=== PATIENT | male | born 1950 | race Caucasian/White ===

== ENCOUNTER 2016-07-23 15:47 | Emergency (ER) | payer OTHER ==
[~2016-07-23] VITALS: Ht 160 cm; Wt 56.7 kg
[~2016-07-23 15:47] MED LIST: ABAC1TAB3 PO; ATAZ100C PO; CITA10TA17 PO; RITO100C2 PO; TRAZ-147 PO
[2016-07-23 23:21] VITALS: BP 148/87
== END 2016-07-23 22:55 | disposition home or self-care (01) ==
LOC: ER 15:49
DX: K94.13 Enterostomy malfunction (principal); E86.0 Dehydration; I10 Essential (primary) hypertension; K21.9 Gastro-esophageal reflux disease without esophagitis; F32.9 Major depressive disorder, single episode, unspecified; Z90.49 Acquired absence of other specified parts of digestive tract; Z88.0 Allergy status to penicillin
CPT/HCPCS: 99284; A4606; Z7610

== ENCOUNTER 2017-03-21 12:43 | Inpatient (IN) | payer OTHER ==
[~2017-03-21] VITALS: Ht 175.3 cm; Wt 63.5 kg
--- NOTE | 2017-03-21 12:56 | NUR ---
PT TO ER BED 16. C/O LLE PAIN, CELLULITIS NOTED. ALSO C/O DIFFUSE ABDOMINAL PAIN, FEVER X 1 WEEK. PT GOWNED AND PLACED ON MONITOR. STABLE VITALS. AFEBRILE WEIGHT LOSS SALES CONSULTANT. AWAITING MD CADET.
--- NOTE | 2017-03-21 13:18 | NUR ---
SRIDHAR COATER OPERATOR INSULATION BOARD AT BEDSIDE FOR EVAL.
--- NOTE | 2017-03-21 13:20 | NUR ---
IV LINE STARTED BLOOD DRAWN AND SENT TO LAB.
[2017-03-21 13:26] LABS: BASOPHILS % (AUTO) 0.1 % (0.0-2.0); EOSINOPHILS # (AUTO) 0.1 /CMM (0.0-0.7); EOSINOPHILS % (AUTO) 0.5 % (0.0-6.0); HEMATOCRIT 30 % (39-51); HEMOGLOBIN 10.2 g/dL (13.5-17.5); LYMPHOCYTES # (AUTO) 1.6 /CMM (0.8-4.8); LYMPHOCYTES % (AUTO) 14.9 % (20.0-44.0); MEAN CORPUSCULAR HEMOGLOBIN 29 PG (26.0-33.0); MEAN CORPUSCULAR HGB CONC 34 g/dl (31.0-36.0); MEAN CORPUSCULAR VOLUME 87 fL (80-96); MONOCYTES # (AUTO) 0.7 /CMM (0.1-1.30); MONOCYTES % (AUTO) 6.2 % (2.0-12.0); NEUTROPHILS # (AUTO) 8.4 /CMM (1.8-8.9); NEUTROPHILS % (AUTO) 78.3 % (43.0-81.0); PLATELET COUNT (AUTO) 353 /CMM (150-450); RED BLOOD CELL COUNT(AUTO) 3.48 MIL/uL (4.5-6.0); WHITE BLOOD COUNT (AUTO) 10.8 K/uL (4.3-11.0)
[2017-03-21] MEDS ORDERED: IV NS 0.9% 1,000 ML BAG IV ONE (13:30)
[2017-03-21 13:40] LABS: PROTHROMBIN TIME 10.4 SECS (9.5-12.7)
--- NOTE | 2017-03-21 13:42 | NUR ---
RADIOLOGY AT BEDSIDE FOR CHEST AND L TIB/FIB XRAY.
[2017-03-21 13:44] LABS: TROPONIN I < 0.017 ng/mL (0.00-0.056)
[2017-03-21 13:51] LABS: CALCIUM, SERUM 8.4 mg/dL (8.5-10.1); CARBON DIOXIDE 23 mmol/L (21-32); CHLORIDE 106 mmol/L (98-107); CREATININE 2.1 mg/dL (0.6-1.3); GLUCOSE 106 mg/dL (74-106); POTASSIUM 3.8 mmol/L (3.5-5.1); SODIUM SERUM 139 mmol/L (136-145); UREA NITROGEN, BLOOD 18 mg/dL (7-18)
[2017-03-21 13:56] LABS: ALANINE AMINOTRANSFERASE 17 U/L (12-78); ALBUMIN 3.3 g/dL (3.4-5.0); ALKALINE PHOSPHATASE 100 U/L (46-116); ASPARTATE AMINOTRANSFERASE 19 U/L (15-37); BILIRUBIN,DIRECT 0.1 mg/dL (0.0-0.2); BILIRUBIN,TOTAL 0.4 mg/dL (0.2-1.0); TOTAL PROTEIN, SERUM 7.9 g/dL (6.4-8.2)
--- NOTE | 2017-03-21 14:36 | NUR ---
PT IS HYPERTENSIVE, SRIDHAR TEMPORARY DATA ENTRY CLERK MADE AWARE.
--- NOTE | 2017-03-21 14:49 | NUR ---
PATIENT WILL BE ADMITTED INTO ROOM 329 MS.
--- NOTE | 2017-03-21 14:54 | NUR ---
REPORT GIVEN TO MALINDA. PT AWAITING TRANSFER TO FLOOR.
--- NOTE | 2017-03-21 15:35 | NUR ---
CALLED DR DEL ANGEL, LEFT VOICEMAIL.
--- NOTE | 2017-03-21 15:52 | NUR ---
CALLED DR DEL ANGEL, ON THE PHONE WITH MELVINA GARDINER
[2017-03-21] MEDS ORDERED: LEVOFLOXACIN 750 MG /D5W 150ML PIGGYBACK IV ONE (16:00)
[2017-03-21] MEDS ORDERED: VANCOMYCIN 1 GM in IV D5W 250 ML IV ONE ×2 (16:00→19:00)
[2017-03-21] MEDS ORDERED: LEVOFLOXACIN 750 MG /D5W 150ML 150 ML IV ONE (16:21)
[2017-03-21 17:00] VITALS: BP 165/98
--- NOTE | 2017-03-21 17:00 | NUR ---
RN NOTES SKIN ASSESSED AND PICTURES WERE TAKEN ON PT.'S WOUNDS.
--- NOTE | 2017-03-21 17:00 | NUR ---
RN NOTES ADMISSION RECEIVED PT. A&OX4. PT. BREATHING ON ROOM AIR UNLABORED. NO S/S OF ACUTE DISTRESS. IV ANTIBIOTICS RUNNING IV ON RIGHT FOREARM. PT. WAS BROUGHT IN ON AN ER BED, AND RECEIVED IV ANTIBIOTICS FROM ER. BED IS IN LOW POSITION, 2 SIDE RAILS UP, AND INSTRUCTED PT. TO USE CALL LIGHT WITHIN REACH. 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
[2017-03-21] MEDS ORDERED: ONDANSETRON HCL/PF 4 MG/2 ML VIAL IV PRN (18:30)
[2017-03-21] MEDS ORDERED: LEVOFLOXACIN 500 MG /D5W 100ML 500 MG in PREMIX 1 EA IV ONE (19:00)
[2017-03-21] MEDS ORDERED: FEE PK DOSING 1 MIN EA MC ONE ×2 (19:04→19:11)
[2017-03-21] MEDS: HYDROMORPHONE 1 MG/1 ML DISP.SYRIN IV PRN (19:22)
--- NOTE | 2017-03-21 19:40 | NUR ---
MS/PATTERN GRADER CUTTER; RECEIVED PT 'S REPORTS FROM THE DAY SHIFT RN FOR CONTINUITY OF CARE. PT AT THIS TIME ON THE PHONE. BREATHING NON LABORED. IV SITE ON RFA INTACT. HAS ILEOSTOMY . BED ON LOWER POSITION AND LOCKED FOR SAFETY. SIDE RAILS ARE UP FOR SAFETY. NOTED URINAL WITH OUTPUT OF YELLOW URINE 300 ML . PT REMINDED TO CALL FOR HELP AND CALL LIGHT AND URINAL WITHIN REACH.
--- NOTE | 2017-03-21 19:45 | NUR ---
RN CLOSING NOTES PT. IS IN BED A&OX4, SLEEPING INTERMITTENTLY. BREATHING ON ROOM AIR UNLABORED. PT. WAS GIVEN DILAUDID IVP FOR PAIN 8/10 IN LEFT & RIGHT LOWER EXTREMITIES. PT. HAS ILEOSTOMY ON ABDOMINAL RIGHT UPPER QUADRANT, NO S/S OF REDNESS AT SITE, AND PT. EMPTIED ILEOSTOMY ONCE INDEPENDENTLY. IV FLUIDS RUNNING AT 100 ML/HR. BED IS IN LOW POSITION, 2 SIDE RAILS UP, CALL LIGHT WITHIN REACH, AND ALL NEEDS MET AT THIS TIME. WILL ENDORSE REPORT TO DRAWING FRAME TENDER NURSE.
[2017-03-21 20:00] VITALS: BP 191/105
--- NOTE | 2017-03-21 20:09 | NUR ---
MSRN HAD 1 GM OF VANCO STARTED IN ER. PATIENT CAME WITH VANCO INFUSING. FOLLOWED BY LEVAQUIN 750 MG IVPB.
--- NOTE | 2017-03-21 20:35 | NUR ---
MS/MERCHANDISING REPRESENTATIVE; TEMP. 100.7 PER AXILLA, AND BP 191 105. NOTED PT IS APPEARED AGITATED TALKING ON THE PHONE. CHARGE NURSE INFORMED OF THE ABOVE. TYLENOL 650 MG PO GIVEN AT 2038.
[2017-03-21] MEDS: ACETAMINOPHEN 325 MG TABLET PO PRN (20:39)
--- NOTE | 2017-03-21 21:00 | NUR ---
MS/BENZENE WASHER; ILEOSTOMY BAG WITH LIQUID BROWN STOOLS. BAG CHANGED.
--- NOTE | 2017-03-21 21:15 | NUR ---
MS/LVB; BED BATH RENDERED BY THE OPERATIONS INSPECTOR. BED LINENS AND GOWN CHANGED. REPOSITIONED.
[2017-03-21 22:00] VITALS: BP 150/86
[2017-03-21] MEDS: TRAZODONE 50 MG TABLET PO SCH (22:01)
[2017-03-22] MEDS ORDERED: PIPERACILLIN /TAZOBACTAM 2.25 G in IV D5W 50 ML IV SCH ×2
[2017-03-22 06:45] LABS: EOSINOPHILS # (AUTO) 0.1 /CMM (0.0-0.7); EOSINOPHILS % (AUTO) 1.6 % (0.0-6.0); HEMATOCRIT 33 % (39-51); HEMOGLOBIN 11.1 g/dL (13.5-17.5); LYMPHOCYTES # (AUTO) 0.6 /CMM (0.8-4.8); LYMPHOCYTES % (AUTO) 6.8 % (20.0-44.0); MEAN CORPUSCULAR HEMOGLOBIN 30 PG (26.0-33.0); MEAN CORPUSCULAR HGB CONC 34 g/dl (31.0-36.0); MEAN CORPUSCULAR VOLUME 89 fL (80-96); MONOCYTES # (AUTO) 0.4 /CMM (0.1-1.30); MONOCYTES % (AUTO) 5.1 % (2.0-12.0); NEUTROPHILS # (AUTO) 7.1 /CMM (1.8-8.9); NEUTROPHILS % (AUTO) 86.5 % (43.0-81.0); PLATELET COUNT (AUTO) 307 /CMM (150-450); RED BLOOD CELL COUNT(AUTO) 3.72 MIL/uL (4.5-6.0); WHITE BLOOD COUNT (AUTO) 8.2 K/uL (4.3-11.0)
--- NOTE | 2017-03-22 07:00 | NUR ---
MS/CERTIFIED FORKLIFT OPERATOR; SLEPT AT GOOD INTERVALS. IVF ON PROGRESS. ILEOSTOMY BAG INTACT. DENIES PAIN. WILL ENDORSE TO THE DAY SHIFT NURSE.
[2017-03-22 07:18] LABS: CALCIUM, SERUM 8.1 mg/dL (8.5-10.1); CREATININE 1.7 mg/dL (0.6-1.3); POTASSIUM 4.1 mmol/L (3.5-5.1)
[2017-03-22 08:00] VITALS: BP 134/72
--- NOTE | 2017-03-22 08:01 | NUR ---
MS RN OPENING NOTE PATIENT IS ALERT AND ORIENTED x3. NO PAIN AT THIS TIME. NO SOB OR DISTRESS NOTED. CALL LIGHT WITHIN REACH. SAFETY MEASURES IMPLEMENTED. IV INTACT AND PATENT NO REDNESS OR SWELLING NOTED. ABLE TO COMMUNICATE NEEDS. USES URINAL AT BEDSIDE. ON CONTACT ISOLATION FOR MRSA OF NARES. PATIENT HAS 100.4 FEVER THIS MORNING, MD AWARE. MEDICATION GIVEN. IV FLUIDS RUNNING AT THIS TIME. WILL CONTINUE TO MONITOR SHIFT THROUGHOUT SHIFT
[2017-03-22] MEDS ORDERED: ATAZANAVIR SULFATE PO SCH (09:00)
[2017-03-22] MEDS: ATAZANAVIR SULFATE 300 MG CAPSULE PO SCH (09:08)
[2017-03-22] MEDS: LAMIVUDINE (150MG) 150 MG TABLET PO SCH (09:08)
[2017-03-22] MEDS: ABACAVIR SULFATE 300 MG TABLET PO SCH (09:08)
[2017-03-22] MEDS: RITONAVIR 100 MG CAPSULE PO SCH (09:08)
[2017-03-22] MEDS: ACETAMINOPHEN 325 MG TABLET PO PRN ×2 (09:08→19:54)
[2017-03-22] MEDS: CITALOPRAM HYDROBROMIDE 10 MG TABLET PO SCH (09:09)
--- NOTE | 2017-03-22 12:15 | NUR ---
MS RN NOTE PATIENT HAS ILEOSTOMY BAG. SITE CLEANED AND DRIED. BAG CHANGED. WILL CONTINUE TO MONITOR FOR OUTPUT.
[2017-03-22] MEDS ORDERED: CLIN300C97 PO (12:19)
[2017-03-22] MEDS ORDERED: LEVO500T15 PO (12:28)
[2017-03-22] MEDS ORDERED: VANCOMYCIN 0.75 GM in IV D5W 250 ML IV SCH (14:00)
[2017-03-22 16:00] VITALS: BP 132/70
--- NOTE | 2017-03-22 18:46 | NUR ---
MS RN CLOSING NOTE PATIENT IS ALERT AND ORIENTED x4. NO PAIN AT THIS TIME. NO SOB OR DISTRESS NOTED. CALL LIGHT WITHIN REACH AT ALL TIMES. SAFETY MEASURES IMPLEMENTED. ALL DUE MEDICATIONS GIVEN ORDERED. ILEOSTOMY DRAINED AND CHANGED. IV INTACT AND PATENT NO REDNESS OR SWELLING NOTED. AWAITING WOUND CONSULT FOR TOMORROW. PATIENT USES URINAL. PATIENT AWAITING PLACEMENT FROM CASE MANAGEMENT FOR [facility]. WILL ENDORSE TO AIRCRAFT LIFE SUPPORT FITTER NURSE.
--- NOTE | 2017-03-22 19:48 | NUR ---
ms/rn opening notes Patient resting comfortably in bed, asleep but arousable, verbalize need for pain due to headache , tylenol prn 650mg po will be given, will check effectiveness, warm blanket provided.respiration even and unlabored, skin warm to touch. bed in lock position,colostomy intact iv patent w/ no s/s of infiltration. on RFA.
[2017-03-22] MEDS: LEVOFLOXACIN 250 MG /D5W 50 ML 250 MG in PREMIX 1 EA IV SCH (19:54)
--- NOTE | 2017-03-22 20:00 | NUR ---
ms/rn notes DR DEL ANGEL CALLED AND INFORMED THAT PATIENT IS NOT A REGAL PATIENT IN TERM OF INSURANCE AND WOULD REQUEST TO HAVE EPIC MD HANDLE PATIENT AT THIS TIME. HAVE INFORMED CHARGE NURSE AND WILL INFORM AM RN.
[2017-03-22 20:11] VITALS: BP 174/99
[2017-03-22 20:31] VITALS: BP 174/99
[2017-03-22] MEDS: TRAZODONE 50 MG TABLET PO SCH (22:00)
[2017-03-23] MEDS: HYDROMORPHONE 1 MG/1 ML DISP.SYRIN IV PRN ×3 (04:48→19:47)
--- NOTE | 2017-03-23 04:51 | NUR ---
ms/rn notes patient able to sleep during the night , was awaken and verbalized pain on lthe feet at 8/10 pain level, administer iv dilaudid 1ml and monitoring for pain effectiveness, colostomy bag change, kept skin intact and dry.
--- NOTE | 2017-03-23 05:30 | NUR ---
ms/rn notes patient asleep and prefer not to have phot pictures taken will inform am rn.
--- NOTE | 2017-03-23 05:41 | NUR ---
329-1 MS/RN CLOSING NOTES PATIENT IN BED, RESTING COMFORTABLY IN BED, PROVIDED PAIN MEDICATION FOR REPORTED PAIN ON THE LEGS, PAIN RELIEF EFFECTIVENESS,ABLE TO TURN AND REPOSITION INDEPENDENTLY, ON CONTACT ISOLATION FOR NARES, PATIENT HAVE COLOSTOMY BAG, CHANGE, SAFETY/ ISOLATION MEASURES WILL CONTINUE TO MONITOR..
[2017-03-23 07:41] LABS: CALCIUM, SERUM 8.2 mg/dL (8.5-10.1); CREATININE 1.7 mg/dL (0.6-1.3); POTASSIUM 4.1 mmol/L (3.5-5.1)
--- NOTE | 2017-03-23 07:44 | NUR ---
AM RN NOTES RECEIVED PT SLEEPING IN BED COMFORTABLY, EASY TO AWAKE, NO PAIN AT THIS TIME, NO SOB OR DISTRESS WILL MONITOR.
[2017-03-23 08:00] VITALS: BP 128/82
[2017-03-23] MEDS ORDERED: VANCOMYCIN 1 GM in IV D5W 250 ML IV SCH (08:00)
[2017-03-23] MEDS: CITALOPRAM HYDROBROMIDE 10 MG TABLET PO SCH (08:22)
[2017-03-23] MEDS: ATAZANAVIR SULFATE 300 MG CAPSULE PO SCH (08:31)
[2017-03-23] MEDS: LAMIVUDINE (150MG) 150 MG TABLET PO SCH (08:32)
[2017-03-23] MEDS: RITONAVIR 100 MG CAPSULE PO SCH (08:32)
[2017-03-23] MEDS: ABACAVIR SULFATE 300 MG TABLET PO SCH (08:33)
[2017-03-23] MEDS ORDERED: ALBUTEROL FS 2.5 MG/0.5 ML VIAL.NEB ONE (14:00)
[2017-03-23] MEDS ORDERED: IPRATROPIUM NEB FS 0.5 MG/2.5 ML AMPUL.NEB ONE (14:00)
[2017-03-23 16:00] VITALS: BP 155/90
[2017-03-23] MEDS: LEVOFLOXACIN 250 MG /D5W 50 ML 250 MG in PREMIX 1 EA IV SCH (19:47)
--- NOTE | 2017-03-23 19:53 | NUR ---
PT IN STABLE CONDITION, INDORSED TO NEXT SHIFT FOR CHRISTY.
--- NOTE | 2017-03-23 19:55 | NUR ---
RN NOTES COMPLAINING OF PAIN TO BILATERAL FEET OF 9/10, GIVEN DILAUDID 1 MG IVP, V/S STABLE, EMPTIED COLOSTOMY BAG.
[2017-03-23 20:00] VITALS: BP 159/96
--- NOTE | 2017-03-23 20:00 | NUR ---
RN NOTES RECEIVED PATIENT IN BED, ALERT AND ORIENTED X4, CALM, NO SOB, TOLERATING ROOM AIR, SPO2 93%, NO COMPLAIN OF ABDOMINAL PAIN, RIGHT FA PERIPHERAL LINE IS INFUSING WELL, RIGHT LOWER QUADRANT ILEOSTOMY IS DRAINING WELL OF LIQUID STOOL, EMPTIED BAG, USES URINAL, WITH CLEAR AND YELLOW URINE, ON CONTACT ISOLATION SECONDARY TO MRSA NARES, HIV PRECAUTION, NEEDS ATTENDED, CALL LIGHT WITHIN REACH.
--- NOTE | 2017-03-23 21:10 | NUR ---
RN NOTES PER LAB RESULT, PATIENT IS CLEARED OF MRSA IN NARES, ISOLATION DISCONTINUED
[2017-03-23] MEDS: TRAZODONE 50 MG TABLET PO SCH (21:27)
[2017-03-24] MEDS: HYDROMORPHONE 1 MG/1 ML DISP.SYRIN IV PRN (01:25)
--- NOTE | 2017-03-24 01:30 | NUR ---
RN NOTES PATIENT COMPLAINING OF 8/10 PAIN TO LEFT FOOT, GIVEN DILAUDID 1MG IVP, VSS, OFFLOAD BILATERAL LOWER EXTREMITIES, WILL CONTINUE TO MONITOR.
--- NOTE | 2017-03-24 06:26 | NUR ---
RN NOTES PATIENT IN BED, ALERT AND AWAKE, NO SOB, COMPLAINED OF PAIN TO BILATERAL FEET, PROVIDED PAIN MEDICATION DURING SHIFT, NO RESIDUAL DROWSINESS FROM DILAUDID ADMINISTRATION, COLOSTOMY BAG EMPTIED PRN AND CHANGED IN AM, DRAINING YELLOW AND LIQUID STOOL. RIGHT FA PERIPHERAL LINE IS PATENT AND INFUSING WELL. ALL NEEDS ATTENDED, CALL LIGHT WITHIN REACH.
[2017-03-24 06:58] LABS: CALCIUM, SERUM 8.2 mg/dL (8.5-10.1); CREATININE 1.7 mg/dL (0.6-1.3); POTASSIUM 4.2 mmol/L (3.5-5.1)
--- NOTE | 2017-03-24 07:50 | NUR ---
MS/RN OPENING NOTE PATIENT RECEIVED IN BED ASLEEP IN STABLE CONDITION, EASILY AROUSABLE. ALERT AND ORIENTED TIMES 3. NO SIGNS OF ACUTE DISTRESS. NO COMPLAIN OF PAIN OR DISCOMFORT. CALL LIGHT WITHIN REACH. WILL CONTINUE TO MONITOR TO ENSURE SAFETY.
[2017-03-24 08:00] VITALS: BP 169/100
[2017-03-24] MEDS: ATAZANAVIR SULFATE 300 MG CAPSULE PO SCH (08:43)
[2017-03-24] MEDS: RITONAVIR 100 MG CAPSULE PO SCH (08:43)
[2017-03-24] MEDS: LAMIVUDINE (150MG) 150 MG TABLET PO SCH (08:44)
[2017-03-24] MEDS: ABACAVIR SULFATE 300 MG TABLET PO SCH (08:44)
[2017-03-24] MEDS: CITALOPRAM HYDROBROMIDE 10 MG TABLET PO SCH (08:45)
--- NOTE | 2017-03-24 11:32 | NUR ---
Social service consult requested by Dr. Diallo for homelessness. Pt. is a 66 year old male who was admitted to [facility] for Acute Renal Failure. JULIAN met with pt. bedside. Pt. is alert and oriented x 4. Pt. appeared lethargic and stated his leg is in pain due to an infection. Pt. is homeless and lives in a tent in the [facility] area. Pt. states his wallet and belongings are with his friend Harrison Dee. Pt. is unable to contact his friend because he is unable to remember his phone number. Pt. also lives in motels every now and then with friends. Pt. uses crystal Methamphetamines occasionally. Pt. denies smoking cigarettes and consuming alcohol. Pt. does not smoke marijuana. Pt. receives approximately $271 in SSI per month and $2000 in pension. Pt. use to work for [employer]. SW offered pt. [facility] placement, however pt. declined. Pt. wants to go back to his tent if he is unable to go to a nursing home facility. loan manager Umberto to contact [facility] and speak with their window caser in regards to approval for skilled rehab.
--- NOTE | 2017-03-24 12:02 | NUR ---
MS/RN SEEN BY DR HARPER PATIENT SEEN BY DR HARPER WITH ORDERS TO DISCHARGE TODAY. AWAITING FOR PLACEMENT SS AND CM AWARE.
--- NOTE | 2017-03-24 15:30 | NUR ---
MS/RN Colostomy Colostomy bag changed.
[2017-03-24 16:00] VITALS: BP 163/100
[2017-03-24] MEDS: HYDROMORPHONE INJ 2 MG/ML DISP.SYRIN IV PRN (16:13)
--- NOTE | 2017-03-24 16:13 | NUR ---
MS/RN Pain Complaining of generalized pain, dilaudid 1mg given as ordered, will monitor effectiveness.
--- NOTE | 2017-03-24 18:23 | NUR ---
MS/RN End note Patient's condition remains unchanged, continuing to await SNF placement per patient's insurance. Will endorse to threat analyst.
[2017-03-24] MEDS: LEVOFLOXACIN 250 MG /D5W 50 ML 250 MG in PREMIX 1 EA IV SCH (21:10)
[2017-03-24] MEDS: TRAZODONE 50 MG TABLET PO SCH (21:16)
[2017-03-25] MEDS: HYDROMORPHONE INJ 2 MG/ML DISP.SYRIN IV PRN ×3 (03:18→19:56)
--- NOTE | 2017-03-25 07:27 | NUR ---
MS RN CLOSING NOTE PT REMAINED STABLE DURING MEAT TEAM LEAD, NO SIGNIFICANT CHANGE IN CONDITION NOTED, WILL ENDORSE TO INCOMING NURSE FOR CHRISTY.
--- NOTE | 2017-03-25 07:30 | NUR ---
PT RECEIVED RESTING COMFORTABLY IN BED WITH EYES CLOSED. NO S/S OR C/O PAIN OR DISTRESS NOTED. SIDE RAILS UP X2, CALL LIGHT LEFT WITHIN REACH. WILL CONTINUE PLAN OF CARE.
[2017-03-25 08:00] VITALS: BP 168/98
[2017-03-25 08:24] LABS: CALCIUM, SERUM 8.6 mg/dL (8.5-10.1); CREATININE 1.5 mg/dL (0.6-1.3); POTASSIUM 3.8 mmol/L (3.5-5.1)
[2017-03-25] MEDS: RITONAVIR 100 MG CAPSULE PO SCH (09:34)
[2017-03-25] MEDS: ABACAVIR SULFATE 300 MG TABLET PO SCH (09:34)
[2017-03-25] MEDS: ATAZANAVIR SULFATE 300 MG CAPSULE PO SCH (09:34)
[2017-03-25] MEDS: CITALOPRAM HYDROBROMIDE 10 MG TABLET PO SCH (09:35)
[2017-03-25] MEDS: LAMIVUDINE (150MG) 150 MG TABLET PO SCH (09:35)
--- NOTE | 2017-03-25 12:15 | NUR ---
DISCHARGE INSTRUCTIONS GIVEN ORDERED. ENCOURAGED TO FOLLOW UP WITH PMD INSTRUCTED. ALL QUESTIONS AND CONCERNS ADDRESSED. PATIENT VERBALIZED UNDERSTANDING. MEDICATION RECONCILIATION FORM COMPLETED AND COPY GIVEN TO PATIENT. IV REMOVED WITH CATHETER INTACT, PRESSURE DRESSING APPLIED. PATIENT TAKEN TO AMBULANCE VIA GURNEY WITH ALL PERSONAL BELONGINGS. NO DISTRESS NOTED AT TIME OF DEPARTURE. Addendum: 03/25/17 at 1817 by BRIANDA RAMSEY RN WRONG PATIENT
[2017-03-25 16:00] VITALS: BP 143/97
--- NOTE | 2017-03-25 17:30 | NUR ---
PT REFUSING DISCHARGE/ SUICIDAL IDEATION PT STATES IF HE IS DISCHARGED TO PLANNED DESTINATION "I'M GONNA WALK INTO TRAFFIC". CRISIS TEAM CALLED. NOTIFIED. WILL CONTINUE TO MONITOR.
--- NOTE | 2017-03-25 18:17 | NUR ---
CHANGE OF SHIFT REPORT PT RESTING COMFORTABLY IN BED WITH EYES CLOSED. NO S/S OR C/O PAIN OR DISTRESS NOTED. SIDE RAILS UP X2, CALL LIGHT LEFT WITHIN REACH. PT KEPT CLEAN, DRY, AND COMFORTABLE. NO SIGNIFICANT CHANGES FROM PREVIOUS SHIFT. WILL GIVE REPORT TO CINDY CUNNINGHAM.
[2017-03-25] MEDS: LEVOFLOXACIN 250 MG /D5W 50 ML 250 MG in PREMIX 1 EA IV SCH (19:28)
--- NOTE | 2017-03-25 19:35 | NUR ---
MS RN INITIAL NOTES REPORT WAS RECEIVED, PT IS IN BED AWAKE A/O X3 ABLE TO MAKE NEEDS KNOWN. ON ROOM AIR BREATHING EVENLY AND UNLABORED, NO SIGNS OF SOB OR DISTRESS. AWAITING RICHARD FROM CRISIS TEAM TO EVALUATE PT FOR SUICIDAL IDEATION TO TRANSFER TO [facility]. WILL CONTINUE TO MONITOR PT.
[2017-03-25 20:00] VITALS: BP_SYST 167; BP_DIAS 103; BP_DIAS 115
--- NOTE | 2017-03-25 20:00 | NUR ---
CRISIS TEAM HELIO RAMOS CAME IN TO EVALUATE PT, 5150 HOLD WAS GIVEN AND PT IS TO BE TRANSFERRED TO [facility]
--- NOTE | 2017-03-25 20:12 | NUR ---
PT IS PUT ON A 5150 HOLD. AWAITING TRANSFER TO [facility]. WILL MONITOR PT Q15 MIN
--- NOTE | 2017-03-25 20:40 | NUR ---
BP PT BP 167/107, DR BALDERAS WAS CALLED, CLONIDINE 0.1 MG WAS ORDERED.
[2017-03-25] MEDS ORDERED: CLONIDINE HCL 0.1 MG TABLET PO ONE (21:00)
--- NOTE | 2017-03-25 22:00 | NUR ---
TRANSFER WAS CANCELED DUE TO GEROPSYCH NEEDING THE BED. WILL CONDUCT ROUNDING Q15MIN TO ENSURE SAFETY
[2017-03-25] MEDS: TRAZODONE 50 MG TABLET PO SCH (22:27)
[2017-03-26] MEDS: HYDROMORPHONE INJ 2 MG/ML DISP.SYRIN IV PRN ×2 (05:41→12:04)
--- NOTE | 2017-03-26 06:25 | NUR ---
MS RN CLOSING NOTES PT IS IN BED SLEEPING, EASILY AROUSED. A/O X3 ABLE TO MAKE NEEDS KNOWN. BREATHING EVENLY AND UNLABORED ON ROOM AIR, NO SIGNS OF SOB OR DISTRESS. IV ACCESS IS INTACT AND PATENT. PENDING TRANSFER TO PSYCH UNIT. WILL ENDORSE TO DAY SHIFT.
[2017-03-26 07:21] LABS: CALCIUM, SERUM 8.6 mg/dL (8.5-10.1); CREATININE 1.7 mg/dL (0.6-1.3)
--- NOTE | 2017-03-26 07:30 | NUR ---
MS CUNNINGHAM AM NOTES REPORT WAS RECEIVED, PT IS IN BED AWAKE A/O X3 ABLE TO MAKE NEEDS KNOWN. ON 5150 HOLD FOR SI, SITTER AT BEDSIDE, ON ROOM AIR BREATHING EVENLY AND UNLABORED, NO SIGNS OF SOB OR DISTRESS. DENIES PAIN AT THIS TIME, KCL 20 MEQ ON D5 1/2 NS AT 100 ML/HR RUNNING TO RFA, SITE CLEAR. REGULAR DIET, AMBULATORY, SEE NURSING FLOWSHEET FOR SKIN ISSUES. SAFETY MEASURES IN PLACE. CALL LIGHT WITHIN REACH. WILL CONTINUE TO MONITOR.
[2017-03-26 08:00] VITALS: BP 154/95
--- NOTE | 2017-03-26 09:30 | NUR ---
MS RN NOTES ADMINISTERED DUE MEDS.
[2017-03-26] MEDS: CITALOPRAM HYDROBROMIDE 10 MG TABLET PO SCH (09:34)
[2017-03-26] MEDS: ATAZANAVIR SULFATE 300 MG CAPSULE PO SCH (09:34)
[2017-03-26] MEDS: LAMIVUDINE (150MG) 150 MG TABLET PO SCH (09:35)
[2017-03-26] MEDS: RITONAVIR 100 MG CAPSULE PO SCH (09:35)
[2017-03-26] MEDS: ABACAVIR SULFATE 300 MG TABLET PO SCH (09:42)
--- NOTE | 2017-03-26 09:42 | NUR ---
MS RN NOTES CORRECTED CITALOPRAM TAB PULLED OUT 1 TBA ONLY EARLIER. CORRECTED AND PULLED OUT 3 TABLETS MORE TO COMPLETE 4 TABS.
--- NOTE | 2017-03-26 09:46 | NUR ---
MS RN NOTES OOB WITH P.T.
--- NOTE | 2017-03-26 09:53 | NUR ---
MS RN NOTES PATIENT DC'D BY JOHAN FOR [facility]. RECEIVED CALL FROM [facility], PT NEEDS TO BE SEEN BY DR. SULLIVAN PRIOR TO [facility] ADMISSION. CALLED CHARITO AT [facility], NO BED AVAILABLE YET. NOTIFIED, PT'S FACESHEET FAXED TO THEM FOR FR. SULLIVAN. CHARGE NURSE OLMAN FREITAS.
[2017-03-26 15:46] VITALS: BP 148/84
--- NOTE | 2017-03-26 15:46 | NUR ---
MS MARSHMALLOW MAKER NOTES PT DISCHARGED TO [facility] TODAY PER MD IN STABLE CONDITION. PROVIDED DC INSTRUCTIONS, MED RECON LIST/PRESCRIPTIONS AND HEALTH TEACHINGS. PT SEEN BY DR. SULLIVAN YESTERDAY AND PER [facility] CHARGE NURSE, DR. SULLIVAN GAVE INSTRUCTIONS THAT THERES NO NEED FOR HIM TO SEE PT PRIOR TO TRANSFER TO [facility]. RFA IV ACCESS REMOVED. NO BLEEDING. DRESSING IN PLACE. PER PATIENT, STATED HIS WALLET IS WITH HIS FRIEND BRADEN WILKINS. ALL OTHER BELONGINGS CHECKED AND RETURNED. ALL PAPER WORKS SIGNED. PT IS ON 5150 HOLD. ORIGINAL COPY IN HIS CHART. PATIENT REFUSED PHOTOS OF HIS SKIN ISSUES AT THIS TIME. DESPITE EXPLAINING [facility] PROTOCOL. ASSISTED AND ACCOMPANIED BY CHANNEL LIP WETTER AND RN TO [facility] VIA WHEELCHAIR.
[2017-03-26 15:47] VITALS: BP 126/82
[2017-03-26] MEDS ORDERED: LEVO500T15 PO (16:32)
[2017-03-26] MEDS ORDERED: LAMI150T PO (16:32)
[2017-03-26] MEDS ORDERED: ABAC300T PO (16:32)
[2017-03-26] MEDS ORDERED: LEVOFLOXACIN (250MG) 250 MG TABLET PO SCH (20:00)
== END 2017-03-26 15:47 | DRG 975 ==
LOC: ER 12:44 → MED 16:11
PROVIDERS: ADMIT Internal Medicine; ATTEND Internal Medicine
DX: J15.6 Pneumonia due to other Gram-negative bacteria (principal); B20 Human immunodeficiency virus [HIV] disease; K51.90 Ulcerative colitis, unspecified, without complications; I10 Essential (primary) hypertension; D64.9 Anemia, unspecified; S81.802S Unspecified open wound, left lower leg, sequela; F32.9 Major depressive disorder, single episode, unspecified; Z59.0 Homelessness; J15.9 Unspecified bacterial pneumonia; K21.9 Gastro-esophageal reflux disease without esophagitis; Z88.0 Allergy status to penicillin; Z79.899 Other long term (current) drug therapy; Z91.14 Patient's other noncompliance with medication regimen; F15.90 Other stimulant use, unspecified, uncomplicated; X58.XXXS Exposure to other specified factors, sequela
CPT/HCPCS: 36415; 71010-TC; 73590-TC; 80048-TC; 80076-TC; 80202-TC; 83605-TC; 83615-TC; 84484-TC; 85025-TC; 85730-TC; 87040-TC; 87081-TC; A4216; A4606; J1170; J1956; J2543; J3370; J3480; J3490; J7030; J7050; J7060; Z7610

== ENCOUNTER 2017-03-26 15:50 | Inpatient (IN) | payer OTHER ==
[~2017-03-26] VITALS: Ht 167.6 cm; Wt 66.2 kg
[~2017-03-26 15:50] MED LIST changes: +LEVO500T15 PO
[2017-03-26] MEDS ORDERED: MAGNESIUM HYDROXIDE 30 ML UDC PO PRN (16:30)
[2017-03-26] MEDS ORDERED: MAG HYDROX/AL HYDROX/SIMETH 30 ML UDC PO PRN (16:30)
[2017-03-26] MEDS ORDERED: ABAC300T PO (16:32)
[2017-03-26] MEDS ORDERED: LEVO500T15 PO (16:32)
[2017-03-26] MEDS ORDERED: LAMI150T PO (16:32)
--- NOTE | 2017-03-26 19:00 | NUR ---
DECK STEWARD-NOTES ADMITTED 66 Y.O MALE PATIENT FOR 5150 FOR DANGER TO SELF. PER HOLD PATIENT PLANNING RO RUN IN THE TRAFFIC AND OVERDOSE WITH BENADRYL. PATIENT UNDER THE CARE OF DR. SULLIVAN ( PSYCHIATRIST) AND DR. RODRIGUEZ (MEDICAL).BOTH MD AWARE OF PATIENT ADMISSION IN THE UNIT WITH ORDERS. CONTRABAND AND BODY CHECK DONE. UPON FACE TO FACE ASSESSMENT PATIENT ADMITTED HE IS DEPRESSED BUT DENIES SI/HI AT THIS TIME. PATIENT IS CALM AND COOPERATIVE DURING ADMISSION PROCESS. PATIENT LAYING IN HIS BED AT THIS TIME ,NO ACUTE DISTRESS NOTED . ALL NEEDS ATTENDED AND ANTICIPATED. WILL ENDORSE TO INCOMING NURSE FOR CONTINUITY OF CARE.
[2017-03-26 19:36] VITALS: BP 149/96
[2017-03-26 20:00] VITALS: BP 154/93
[2017-03-26] MEDS: ZOLPIDEM TARTRATE 5 MG TABLET PO PRN (22:00)
[2017-03-26] MEDS: ACETAMINOPHEN 325 MG TABLET PO PRN (22:00)
[2017-03-27 07:44] LABS: ALBUMIN 2.5 g/dL (3.4-5.0); BILIRUBIN,TOTAL 1.7 mg/dL (0.2-1.0); CALCIUM, SERUM 8.5 mg/dL (8.5-10.1); CREATININE 1.8 mg/dL (0.6-1.3); POTASSIUM 4.2 mmol/L (3.5-5.1)
[2017-03-27 08:36] VITALS: BP 162/89
[2017-03-27] MEDS: ABACAVIR SULFATE 300 MG TABLET PO SCH (11:29)
[2017-03-27] MEDS: LAMIVUDINE (150MG) 150 MG TABLET PO SCH (11:30)
[2017-03-27] MEDS: ATAZANAVIR SULFATE 300 MG CAPSULE PO SCH (11:30)
[2017-03-27] MEDS: RITONAVIR 100 MG CAPSULE PO SCH (11:30)
[2017-03-27] MEDS ORDERED: Z GUARD REMEDY 2 OZ OINT TP PRN (12:00)
--- NOTE | 2017-03-27 12:05 | NUR ---
WOUND CARE CONSULT: PT PRESENTS AMBULATORY AND CONTINENT WITH ILEOSTOMY. SOME REDNESS NOTED TO PERINEUM. PT HAS CRUSTED AREAS TO LOWER EXTREMITIES, PRESENT ON ADMISSION AND FINGERS HAVE OPEN AREAS NEAR NAILS. RECOMMEND SURGICAL CONSULT. ALL SKIN PROTECTION AND WOUND RECOMMENDATIONS DISCUSSED WITH NURSING STAFF. WILL SEE PRN. Nette Giles IN AGREEMENT WITH PLAN OF CARE. Addendum: 03/27/17 at 1207 by TRACEY RAE WNDNU Amended: Links added.
[2017-03-27] MEDS ORDERED: LEVOFLOXACIN (500MG) 500 MG TABLET PO ONE (13:00)
[2017-03-27] MEDS ORDERED: LEVOFLOXACIN (250MG) 250 MG TABLET PO SCH (13:00)
[2017-03-27] MEDS: VENLAFAXINE XR 75 MG CAP.SR.24H PO SCH (13:28)
[2017-03-27] MEDS: Z GUARD REMEDY 2 OZ OINT TP SCH (13:29)
[2017-03-27] MEDS: BACI/NEOM/POLY B OINT PKT 1 UDPKT PACKET TP SCH ×2 (14:05→16:33)
--- NOTE | 2017-03-27 14:17 | NUR ---
UR Update: pipe assembly worker faxed clinicals to Kerry ([phone]) from [facility]. pipe assembly worker will follow-up.
--- NOTE | 2017-03-27 15:20 | NUR ---
Initial Discharge note: Patient is homeless and agreed to placement. pastoral worker spoke to patient's brother Cipriano Stephenson ([phone]) who confirmed that patient is homeless and does receive ($2,200/month). pastoral worker will help form a safe and proper discharge.
[2017-03-27 16:00] VITALS: BP 152/86
[2017-03-27 17:28] LABS: CHOLESTEROL 148 mg/dL (<200); HDL CHOLESTEROL 48 mg/dL (40-60); LDL 78 mg/dL (0-99); TRIGLYCERIDES 149 mg/dL (30-150)
[2017-03-27] MEDS: ACETAMINOPHEN 325 MG TABLET PO PRN (18:00)
[2017-03-27] MEDS: LORAZEPAM 0.5 MG TABLET PO PRN (18:20)
--- NOTE | 2017-03-27 18:59 | NUR ---
[facility]/RN ENDORSED TO IMAGE CONSULTANT HILARY RN TO COLLECT URINE FOR DRUG SCREEN
[2017-03-27 20:00] VITALS: BP 155/103
[2017-03-27] MEDS ORDERED: TRAZODONE 50 MG TABLET PO SCH (22:00)
[2017-03-28] MEDS: ZOLPIDEM TARTRATE 5 MG TABLET PO PRN (00:05)
[2017-03-28 05:00] VITALS: BP 142/80
--- NOTE | 2017-03-28 07:02 | NUR ---
RN [facility] NOTES PATIENT RESTING HIS BED, NO ACUTE DISTRESS NOTED ,NO CHANGES IN STATUS. ALL NEEDS ATTENDED ANTICIPATED . DENIES SI/HI AT THIS TIME, PT. COMPLY WITH DUE MEDS ,WILL ENDORSE TO NEXT SHIFT FOR CONTINUITY CARE
[2017-03-28 08:00] VITALS: BP 159/90
[2017-03-28] MEDS: LORAZEPAM 0.5 MG TABLET PO PRN ×2 (08:36→17:42)
[2017-03-28] MEDS: VENLAFAXINE XR 75 MG CAP.SR.24H PO SCH (08:39)
[2017-03-28] MEDS: BACI/NEOM/POLY B OINT PKT 1 UDPKT PACKET TP SCH ×2 (08:39→16:25)
[2017-03-28] MEDS: RITONAVIR 100 MG CAPSULE PO SCH (08:40)
[2017-03-28] MEDS: ATAZANAVIR SULFATE 300 MG CAPSULE PO SCH (08:40)
[2017-03-28] MEDS: LAMIVUDINE (150MG) 150 MG TABLET PO SCH (08:40)
[2017-03-28] MEDS: ABACAVIR SULFATE 300 MG TABLET PO SCH (08:40)
[2017-03-28] MEDS: Z GUARD REMEDY 2 OZ OINT TP SCH (08:41)
[2017-03-28] MEDS: HYDROCODONE/APAP 5/325MG 1 EACH TABLET PO PRN ×3 (09:38→22:56)
[2017-03-28] MEDS: LEVOFLOXACIN (250MG) 250 MG TABLET PO SCH (12:18)
[2017-03-28 16:11] VITALS: BP 156/97
[2017-03-28 20:00] VITALS: BP 150/98
[2017-03-29] MEDS: ZOLPIDEM TARTRATE 5 MG TABLET PO PRN ×2 (00:38→22:14)
[2017-03-29 08:00] VITALS: BP 145/94
[2017-03-29] MEDS: HYDROCODONE/APAP 5/325MG 1 EACH TABLET PO PRN ×2 (09:11→21:05)
[2017-03-29] MEDS: VENLAFAXINE XR 75 MG CAP.SR.24H PO SCH (09:11)
[2017-03-29] MEDS: BACI/NEOM/POLY B OINT PKT 1 UDPKT PACKET TP SCH ×2 (09:14→16:15)
[2017-03-29] MEDS: RITONAVIR 100 MG CAPSULE PO SCH (09:15)
[2017-03-29] MEDS: Z GUARD REMEDY 2 OZ OINT TP SCH (09:15)
[2017-03-29] MEDS: LAMIVUDINE (150MG) 150 MG TABLET PO SCH (09:15)
[2017-03-29] MEDS: ABACAVIR SULFATE 300 MG TABLET PO SCH (09:15)
[2017-03-29] MEDS: ATAZANAVIR SULFATE 300 MG CAPSULE PO SCH (09:15)
[2017-03-29] MEDS: LORAZEPAM 0.5 MG TABLET PO PRN ×2 (11:26→20:05)
[2017-03-29] MEDS: LEVOFLOXACIN (250MG) 250 MG TABLET PO SCH (12:20)
[2017-03-29 16:02] VITALS: BP 140/86
[2017-03-29 19:56] VITALS: BP 149/97
[2017-03-30 08:00] VITALS: BP 153/91
[2017-03-30] MEDS: LAMIVUDINE (150MG) 150 MG TABLET PO SCH (08:13)
[2017-03-30] MEDS: VENLAFAXINE XR 75 MG CAP.SR.24H PO SCH (08:13)
[2017-03-30] MEDS: ATAZANAVIR SULFATE 300 MG CAPSULE PO SCH (08:14)
[2017-03-30] MEDS: ABACAVIR SULFATE 300 MG TABLET PO SCH (08:14)
[2017-03-30] MEDS: RITONAVIR 100 MG CAPSULE PO SCH (08:14)
[2017-03-30] MEDS: Z GUARD REMEDY 2 OZ OINT TP SCH (08:17)
[2017-03-30] MEDS: BACI/NEOM/POLY B OINT PKT 1 UDPKT PACKET TP SCH ×2 (08:17→16:38)
[2017-03-30] MEDS: HYDROCODONE/APAP 5/325MG 1 EACH TABLET PO PRN ×2 (08:21→21:23)
--- NOTE | 2017-03-30 08:21 | NUR ---
[id number]: NORCO 5/325 MG PO DUE GENERALIZED PAIN 02/26 UPON PT REQUEST AND WILL CONTINUE TO MONITOR FOR EFFECTIVENESS OF MEDICATION.
[2017-03-30] MEDS: LORAZEPAM 0.5 MG TABLET PO PRN ×2 (11:23→22:08)
--- NOTE | 2017-03-30 11:23 | NUR ---
[id number]: GAVE ATIVAN 1 MG PO DUE TO SEVERE ANXIETY UPON PT REQUEST AND WILL CONTINUE TO MONITOR FOR EFFECTIVENESS OF MEDICATION
[2017-03-30] MEDS: LEVOFLOXACIN (250MG) 250 MG TABLET PO SCH (12:14)
[2017-03-30 16:00] VITALS: BP 148/80
[2017-03-30 20:08] VITALS: BP 129/76
[2017-03-30] MEDS: ZOLPIDEM TARTRATE 5 MG TABLET PO PRN (23:41)
[2017-03-31 08:00] VITALS: BP 147/96
[2017-03-31] MEDS: VENLAFAXINE XR 75 MG CAP.SR.24H PO SCH (08:34)
[2017-03-31] MEDS: BACI/NEOM/POLY B OINT PKT 1 UDPKT PACKET TP SCH (08:35)
[2017-03-31] MEDS: ATAZANAVIR SULFATE 300 MG CAPSULE PO SCH (08:35)
[2017-03-31] MEDS: RITONAVIR 100 MG CAPSULE PO SCH (08:35)
[2017-03-31] MEDS: ABACAVIR SULFATE 300 MG TABLET PO SCH (08:36)
[2017-03-31] MEDS: LAMIVUDINE (150MG) 150 MG TABLET PO SCH (08:36)
[2017-03-31] MEDS: Z GUARD REMEDY 2 OZ OINT TP SCH (08:36)
[2017-03-31] MEDS: LORAZEPAM 0.5 MG TABLET PO PRN ×2 (08:53→22:09)
--- NOTE | 2017-03-31 09:38 | NUR ---
break up worker faxed updated clinicals to Kerry ([phone]) from [facility]. break up worker will follow-up.
[2017-03-31] MEDS: LEVOFLOXACIN (250MG) 250 MG TABLET PO SCH (12:10)
--- NOTE | 2017-03-31 15:43 | NUR ---
habilitation worker spoke to patient regarding placement. Patient agreed to go to a sober living facility but stated that he has tried getting in contact with his friend as he has his belongings. habilitation worker attempted to contact patient's friend Harrison Ventura ([phone]) three times, however, he was unavailable. habilitation worker left him a detailed message with her contact information.
--- NOTE | 2017-03-31 15:47 | NUR ---
structural layout worker spoke to patient's brother Cipriano Stephenson ([phone]) to inform him that patient was agreeing to go to a sober living but was trying to get a hold of his friend Harrison Ventura as patient states that he has all his belongings. Patient's brother was unhappy to hear the patient had left his belongings with his friend. Patient's brother was appreciative for the update. structural layout worker will follow-up.
[2017-03-31 16:00] VITALS: BP 135/81
[2017-03-31] MEDS: NEOMY SULF/BACITRAC ZN/POLY 15 GM TUBE TP SCH (18:32)
[2017-03-31 20:04] VITALS: BP 137/90
[2017-03-31] MEDS: HYDROCODONE/APAP 5/325MG 1 EACH TABLET PO PRN (21:00)
[2017-04-01] MEDS: ZOLPIDEM TARTRATE 5 MG TABLET PO PRN (00:19)
[2017-04-01] MEDS: NEOMY SULF/BACITRAC ZN/POLY 15 GM TUBE TP SCH ×2 (09:05→17:35)
[2017-04-01] MEDS: LAMIVUDINE (150MG) 150 MG TABLET PO SCH (09:05)
[2017-04-01] MEDS: RITONAVIR 100 MG CAPSULE PO SCH (09:05)
[2017-04-01] MEDS: ABACAVIR SULFATE 300 MG TABLET PO SCH (09:05)
[2017-04-01] MEDS: ATAZANAVIR SULFATE 300 MG CAPSULE PO SCH (09:06)
[2017-04-01] MEDS: VENLAFAXINE XR 75 MG CAP.SR.24H PO SCH (09:08)
[2017-04-01] MEDS: Z GUARD REMEDY 2 OZ OINT TP SCH (09:09)
[2017-04-01] MEDS: LORAZEPAM 0.5 MG TABLET PO PRN ×2 (12:53→23:28)
--- NOTE | 2017-04-01 12:54 | NUR ---
RN NOTE:PATIENT MEDICATED WITH ATIVAN FOR ANXIETY .
--- NOTE | 2017-04-01 13:01 | NUR ---
slurry worker spoke to patient regarding placement. Patient stated that he was able to get a hold of his friend Harrison Ventura ([phone]) and he wants to go to a hotel. slurry worker offered to find him placement. Patient stated that he did not want placement and wanted to go to hotel with his friend. slurry worker will follow-up.
--- NOTE | 2017-04-01 15:50 | NUR ---
UR Update: body and fender worker faxed updated clinicals to Kerry ([phone]) from [facility]. body and fender worker will follow-up.
[2017-04-01 16:00] VITALS: BP 155/99
[2017-04-01] MEDS: LEVOFLOXACIN (250MG) 250 MG TABLET PO SCH (17:34)
[2017-04-01 20:24] VITALS: BP 155/98
[2017-04-01] MEDS: HYDROCODONE/APAP 5/325MG 1 EACH TABLET PO PRN (21:21)
[2017-04-02] MEDS: ZOLPIDEM TARTRATE 5 MG TABLET PO PRN ×2 (01:02→22:56)
[2017-04-02] MEDS: HYDROCODONE/APAP 5/325MG 1 EACH TABLET PO PRN ×2 (04:02→20:17)
[2017-04-02 08:00] VITALS: BP 149/96
[2017-04-02] MEDS: VENLAFAXINE XR 75 MG CAP.SR.24H PO SCH (08:45)
[2017-04-02] MEDS: RITONAVIR 100 MG CAPSULE PO SCH (08:45)
[2017-04-02] MEDS: NEOMY SULF/BACITRAC ZN/POLY 15 GM TUBE TP SCH ×2 (08:45→16:31)
[2017-04-02] MEDS: ABACAVIR SULFATE 300 MG TABLET PO SCH (08:45)
[2017-04-02] MEDS: LAMIVUDINE (150MG) 150 MG TABLET PO SCH (08:45)
[2017-04-02] MEDS: Z GUARD REMEDY 2 OZ OINT TP SCH (08:46)
[2017-04-02] MEDS: ATAZANAVIR SULFATE 300 MG CAPSULE PO SCH (08:46)
[2017-04-02] MEDS: LEVOFLOXACIN (250MG) 250 MG TABLET PO SCH (12:42)
[2017-04-02] MEDS: LORAZEPAM 0.5 MG TABLET PO PRN (13:03)
[2017-04-02 16:00] VITALS: BP 148/79
--- NOTE | 2017-04-02 16:06 | NUR ---
UR Update: worker's compensation claims examiner faxed updated clinicals to Kerry ([phone]) from [facility]. worker's compensation claims examiner will follow-up.
--- NOTE | 2017-04-02 16:50 | NUR ---
meat counter worker spoke to patient regarding placement. Patient still wants to be discharged to a motel. meat counter worker will follow-up tomorrow regarding the motel address.
--- NOTE | 2017-04-02 16:54 | NUR ---
charhouse worker spoke to patient's brother Cipriano Stephenson ([phone]) and informed him that patient wants to be discharged to a motel and will likely be discharged tomorrow. Patient's brother Cipriano stated that he has tried to help him several times and he refuses help. Cipriano was appreciative of the information.
[2017-04-02 20:00] VITALS: BP 155/90
[2017-04-03 08:00] VITALS: BP 167/90
[2017-04-03 09:00] VITALS: BP 156/93
[2017-04-03] MEDS: Z GUARD REMEDY 2 OZ OINT TP SCH (09:06)
[2017-04-03] MEDS: NEOMY SULF/BACITRAC ZN/POLY 15 GM TUBE TP SCH ×2 (09:06→17:23)
[2017-04-03] MEDS: ATAZANAVIR SULFATE 300 MG CAPSULE PO SCH (09:06)
[2017-04-03] MEDS: VENLAFAXINE XR 75 MG CAP.SR.24H PO SCH (09:06)
[2017-04-03] MEDS: RITONAVIR 100 MG CAPSULE PO SCH (09:06)
[2017-04-03] MEDS: LAMIVUDINE (150MG) 150 MG TABLET PO SCH (09:07)
[2017-04-03] MEDS: ABACAVIR SULFATE 300 MG TABLET PO SCH (09:07)
[2017-04-03] MEDS: LORAZEPAM 0.5 MG TABLET PO PRN ×2 (10:48→21:50)
--- NOTE | 2017-04-03 12:34 | NUR ---
floorworker distributor along with assigned psychiatrist Dr. Mcnally spoke to patient regarding discharge, as patient was to be discharged today. However, patient stated that he cannot leave and is currently suicidal. Dr. Mcnally informed patient that he will keep him through the weekend and will follow-up with him on Thursday. floorworker distributor informed patient that he has limited resources and has been refusing placement and therefore may be have to go to a long term. floorworker distributor will follow-up with patient on Thursday. floorworker distributor also spoke to patient's brother Cipriano Stephenson ([phone]) who stated that he cannot do anything to help him. floorworker distributor attempted to contact patient's friend Harrison Ventura ([phone]), however was unable to reach him. floorworker distributor left him a voicemail with her contact information.
--- NOTE | 2017-04-03 12:43 | NUR ---
dairy husbandry worker spoke to Kerry ([phone]) from [facility] and informed her that patient is stating he is suicidal and will not be discharged today. dairy husbandry worker will follow-up.
[2017-04-03] MEDS: LEVOFLOXACIN (250MG) 250 MG TABLET PO SCH (13:16)
--- NOTE | 2017-04-03 13:51 | NUR ---
UR Update: area field worker faxed updated clinicals to Kerry ([phone]) from [facility]. area field worker will follow-up.
[2017-04-03] MEDS: HYDROCODONE/APAP 5/325MG 1 EACH TABLET PO PRN (15:35)
[2017-04-03 16:00] VITALS: BP 164/92
[2017-04-03] MEDS: AMLODIPINE BESYLATE 5 MG TABLET PO SCH (18:37)
[2017-04-03 20:00] VITALS: BP 132/79
[2017-04-04 07:19] LABS: EOSINOPHILS % (AUTO) 2.9 % (0.0-6.0); HEMATOCRIT 33 % (39-51); HEMOGLOBIN 10.6 g/dL (13.5-17.5); LYMPHOCYTES % (AUTO) 26.5 % (20.0-44.0); MEAN CORPUSCULAR HEMOGLOBIN 29 PG (26.0-33.0); MEAN CORPUSCULAR HGB CONC 32 g/dl (31.0-36.0); MEAN CORPUSCULAR VOLUME 89 fL (80-96); MONOCYTES % (AUTO) 8.5 % (2.0-12.0); NEUTROPHILS % (AUTO) 61.3 % (43.0-81.0); PLATELET COUNT (AUTO) 251 /CMM (150-450); RDW COEFFICIENT OF VARIATION 14.9 (11.5-15.0); WHITE BLOOD COUNT (AUTO) 7.9 K/uL (4.3-11.0)
[2017-04-04 07:20] LABS: BASOPHILS # (AUTO) 0.1 /CMM (0.0-0.2); BASOPHILS % (AUTO) 0.8 % (0.0-2.0); EOSINOPHILS # (AUTO) 0.2 /CMM (0.0-0.7); LYMPHOCYTES # (AUTO) 2.1 /CMM (0.8-4.8); MONOCYTES # (AUTO) 0.7 /CMM (0.1-1.30); NEUTROPHILS # (AUTO) 4.8 /CMM (1.8-8.9)
[2017-04-04 07:24] LABS: CALCIUM, SERUM 8.6 mg/dL (8.5-10.1); CREATININE 1.5 mg/dL (0.6-1.3); POTASSIUM 4.3 mmol/L (3.5-5.1)
[2017-04-04 08:00] VITALS: BP 160/95
[2017-04-04] MEDS: NEOMY SULF/BACITRAC ZN/POLY 15 GM TUBE TP SCH ×2 (09:00→16:14)
[2017-04-04] MEDS: RITONAVIR 100 MG CAPSULE PO SCH (09:01)
[2017-04-04] MEDS: ATAZANAVIR SULFATE 300 MG CAPSULE PO SCH (09:01)
[2017-04-04] MEDS: ACETAMINOPHEN 325 MG TABLET PO PRN (09:01)
[2017-04-04] MEDS: LAMIVUDINE (150MG) 150 MG TABLET PO SCH (09:01)
[2017-04-04] MEDS: ABACAVIR SULFATE 300 MG TABLET PO SCH (09:01)
[2017-04-04] MEDS: Z GUARD REMEDY 2 OZ OINT TP SCH (09:01)
[2017-04-04] MEDS: AMLODIPINE BESYLATE 5 MG TABLET PO SCH (09:02)
[2017-04-04] MEDS: VENLAFAXINE XR 75 MG CAP.SR.24H PO SCH (09:02)
--- NOTE | 2017-04-04 09:04 | NUR ---
TOOL KEEPER-NOTES PATIENT C/O HEADACHE AND REQUESTING FOR TYLENOL. TYLENOL 650MG P.O GIVEN PRN ORDER. WILL CONT. MONITORING FOR SAFETY .
[2017-04-04] MEDS: HYDROCODONE/APAP 5/325MG 1 EACH TABLET PO PRN ×2 (11:16→19:50)
--- NOTE | 2017-04-04 11:18 | NUR ---
STUDENT LIFE COORDINATOR-NOTES PATIENT C/O HEADACHE AND REQUESTING FOR NORCO. NORCO 5MG/325MG P.O GIVEN PRN ORDER. WILL CONT. MONITORING FOR SAFETY.
--- NOTE | 2017-04-04 12:37 | NUR ---
PULMONARY FUNCTION TECHNICIAN-NOTES PATIENT LAYING HIS BED CALM.NO C/O OF PAIN OR ANY DISCOMFORT AT THIS TIME.
[2017-04-04 15:49] VITALS: BP_SYST 136; BP_SYST 141; BP_DIAS 84; BP_DIAS 86
[2017-04-04] MEDS: LORAZEPAM 0.5 MG TABLET PO PRN (18:28)
--- NOTE | 2017-04-04 18:32 | NUR ---
AEROSPACE PROJECT MANAGER-NOTES PATIENT C/O OF ANXIETY AND REQUESTING FOR ATIVAN. ATIVAN 1MG P.O GIVEN PRN ORDER. PATIENT LAYING IN HIS BED ,NO ACUTE DISTRESS NOTED. WILL ENDORSE TO INCOMING NURSE FOR CONTINUITY OF CARE.
[2017-04-04 20:00] VITALS: BP 140/84
[2017-04-05] MEDS: LORAZEPAM 0.5 MG TABLET PO PRN ×2 (00:46→20:21)
--- NOTE | 2017-04-05 01:00 | NUR ---
Pt has been quite anhedonic, withdrawn, impassive, isolative, & blunted but compliant/redirectable.
[2017-04-05] MEDS: RITONAVIR 100 MG CAPSULE PO SCH (08:08)
[2017-04-05] MEDS: AMLODIPINE BESYLATE 5 MG TABLET PO SCH (08:08)
[2017-04-05] MEDS: VENLAFAXINE XR 75 MG CAP.SR.24H PO SCH (08:08)
[2017-04-05] MEDS: ABACAVIR SULFATE 300 MG TABLET PO SCH (08:08)
[2017-04-05] MEDS: HYDROCODONE/APAP 5/325MG 1 EACH TABLET PO PRN ×2 (08:09→15:01)
[2017-04-05 08:14] VITALS: BP 150/90
[2017-04-05] MEDS: NEOMY SULF/BACITRAC ZN/POLY 15 GM TUBE TP SCH ×2 (09:27→17:21)
[2017-04-05] MEDS: LAMIVUDINE (150MG) 150 MG TABLET PO SCH (09:27)
[2017-04-05] MEDS: ATAZANAVIR SULFATE 300 MG CAPSULE PO SCH (09:27)
[2017-04-05] MEDS: Z GUARD REMEDY 2 OZ OINT TP SCH (09:28)
--- NOTE | 2017-04-05 15:01 | NUR ---
[facility] RN NOTES ADMINISTERED NARCO 5/325 MG PO PRN FOR HEADACHE, PER PATIENT REQUEST, VS TAKE BP-136/87, P-72, CONTINUED MONITORING. ENCOURAGED TO INCREASE FLUID INTAKE.
[2017-04-05 16:00] VITALS: BP 145/82
[2017-04-05] MEDS ORDERED: SUMATRIPTAN SUCCINATE 100 MG TABLET PO ONE (16:30)
[2017-04-05 19:39] VITALS: BP 145/90
[2017-04-05] MEDS ORDERED: HYDROCODONE/APAP 5/325MG 1 EACH TABLET PO PRN (22:00)
[2017-04-05] MEDS ORDERED: HYDROCODONE/APAP 5/325MG 1 EACH TABLET ONE (22:06)
--- NOTE | 2017-04-05 22:16 | NUR ---
[facility]PS RN NOTE, PATIENT HAS A COMPLAINT OF A MIGRAINE HEAD ACHE AT 5 OUT 10 ON THE PAIN SCALE AND WOULD LIKE MEDICATION AT THIS TIME. PATIENT VITAL SIGNS ARE STABLE. PATIENT ONLY HAS NORCO 5-325 1 TAB PO PRN DAILY. PAGED [facility] AND INFORMED [facility] OF MY FINDINGS. [facility] ORDERED NORCO 5-325 1 TAB PO Q6HR PRN FOR PAIN. ALL ORDERS NOTED AND CARRIED OUT. WILL CONTINUE TO MONITOR THIS PATIENT CLOSELY.
--- NOTE | 2017-04-05 22:30 | NUR ---
[facility] RN: PATIENT REQUESTED FOR HIS NORCO MEDICATION FOR HIS MIGRAINE HEADACHE WITH A SCALE OF 5/10. SPOKE WITH CHARGE NURSE THE PATIENTS NORCO MEDICATION IS ORDERED PRN DAILY. ANESTHESIA ASSOCIATE GOT ORDER FOR NORCO 5/325MG MEDICATION Q6H PRN. ORDER NOTED AND CARRIED OUT. GIVEN TO PATIENT AT 2216 PM. WILL CONTINUE TO MONITOR PATIENT'S PAIN STATUS WELL MOOD AND BEHAVIOR.
[2017-04-05] MEDS: ZOLPIDEM TARTRATE 5 MG TABLET PO PRN (23:09)
[2017-04-06 08:00] VITALS: BP 140/90
[2017-04-06] MEDS: RITONAVIR 100 MG CAPSULE PO SCH (08:01)
[2017-04-06 08:08] VITALS: BP 100/90
[2017-04-06] MEDS: AMLODIPINE BESYLATE 5 MG TABLET PO SCH (08:08)
[2017-04-06] MEDS: VENLAFAXINE XR 75 MG CAP.SR.24H PO SCH (08:08)
[2017-04-06] MEDS: LAMIVUDINE (150MG) 150 MG TABLET PO SCH (08:09)
[2017-04-06] MEDS: ATAZANAVIR SULFATE 300 MG CAPSULE PO SCH (08:09)
[2017-04-06] MEDS: NEOMY SULF/BACITRAC ZN/POLY 15 GM TUBE TP SCH (08:09)
[2017-04-06] MEDS: Z GUARD REMEDY 2 OZ OINT TP SCH (08:11)
[2017-04-06] MEDS: ABACAVIR SULFATE 300 MG TABLET PO SCH (09:03)
--- NOTE | 2017-04-06 14:33 | NUR ---
general distillery worker spoke to patient regarding placement. Patient is still refusing placement and stated that he would like to be discharged to a motel and provided an address [address] [place] [address].
--- NOTE | 2017-04-06 14:37 | NUR ---
Discharge Note: Patient will be discharged to [place] [address] [place] [address]. Via taxi. Patient was agreeable with the discharge plan. Patient's brother Cipriano Stephenson ([phone]) has been notified. Patient's mood and affect are appropriate. Patient denied suicidal and homicidal ideations. Patient's insurance provided a referral to [facility] ([phone]) [address] [facility] [address] [place] [address] and stated that he could be seen by any MD as they are authorized through [facility]. Patient agreed to follow-up within 30 days. Patient was also referred to Nadine Bennett ([phone]) for Therapy [address] [place] [address]. Patient was referred to [facility] ([phone]) [address] [address] and has an intake appointment scheduled for 04/08/17 at 9:00am. Facilitated info to IDT team who are in agreement with discharge arrangement. The multidisciplinary exitcare form was done, printed, signed, and given to the patient.
--- NOTE | 2017-04-06 15:20 | NUR ---
AIRCRAFT MAINTENANCE ENGINEER NOTE:PATIENT WILL BE DISCHARGE TO [facility] ,PATIENT STATED "I WILL MEET MY FRIENDS THERE".
--- NOTE | 2017-04-06 15:25 | NUR ---
Patient alert ,oriented x3 ,verbally responsive med compliant and follow directions ,no c/o pain ,denies si/hi/avh .vs stable ,focus on discharge all discharge instructions explained to patient able to verbalize understanding.patient seen by and Reinier Sweatband Cutting Machine Operator with discharge orders all orders carried out ,all belongings returned to patient ,patient refused discahge photos .patient escorted to taxi by staff SOCIAL MEDIA SPECIALIST.
--- NOTE | 2017-04-07 14:21 | NUR ---
UR Update: hand bindery assembly worker faxed discharge summary to Kerry ([phone]) from [facility].
== END 2017-04-06 14:15 | disposition home or self-care (01) | DRG 885 ==
LOC: GPS 15:50
PROVIDERS: ADMIT Psychiatry & Neurology Psychiatry; ATTEND Internal Medicine
DX: F33.2 Major depressive disorder, recurrent severe without psychotic features (principal); N18.9 Chronic kidney disease, unspecified; B95.8 Unspecified staphylococcus as the cause of diseases classified elsewhere; J18.9 Pneumonia, unspecified organism; S81.802A Unspecified open wound, left lower leg, initial encounter; S81.801A Unspecified open wound, right lower leg, initial encounter; F15.10 Other stimulant abuse, uncomplicated; S61.308A Unspecified open wound of other finger with damage to nail, initial encounter; D63.8 Anemia in other chronic diseases classified elsewhere; I12.9 Hypertensive chronic kidney disease with stage 1 through stage 4 chronic kidney disease, or unspecified chronic kidney disease; D64.9 Anemia, unspecified; F41.9 Anxiety disorder, unspecified; G43.909 Migraine, unspecified, not intractable, without status migrainosus; Z73.6 Limitation of activities due to disability; F19.10 Other psychoactive substance abuse, uncomplicated; X58.XXXA Exposure to other specified factors, initial encounter; Y93.9 Activity, unspecified; Y92.009 Unspecified place in unspecified non-institutional (private) residence as the place of occurrence of the external cause; Z90.49 Acquired absence of other specified parts of digestive tract
CPT/HCPCS: 36415; 80048-TC; 80053-TC; 80061-TC; 80305; 85025-TC; 87081-TC; Z7610

== ENCOUNTER 2018-02-06 07:59 | Inpatient (IN) | payer OTHER ==
[~2018-02-06] VITALS: Ht 175.3 cm; Wt 67.1 kg
[~2018-02-06 07:59] MED LIST changes: -ABAC1TAB3 PO; +ABAC300T PO; -CITA10TA17 PO; +LAMI150T PO; -LEVO500T15 PO; +LEVO500T75 PO; -TRAZ-147 PO
--- NOTE | 2018-02-06 08:16 | NUR ---
[facility]-- SI, "HOPING TO GET HIT BY CARS". PATIENT IS STABLE
[2018-02-06 08:32] LABS: BASOPHILS % (AUTO) 0.4 % (0.0-2.0); EOSINOPHILS % (AUTO) 1.2 % (0.0-6.0); HEMATOCRIT 38 % (39-51); HEMOGLOBIN 12.4 g/dL (13.5-17.5); LYMPHOCYTES # (AUTO) 1.5 /CMM (0.8-4.8); LYMPHOCYTES % (AUTO) 31.6 % (20.0-44.0); MEAN CORPUSCULAR HEMOGLOBIN 29 PG (26.0-33.0); MEAN CORPUSCULAR HGB CONC 33 g/dl (31.0-36.0); MEAN CORPUSCULAR VOLUME 88 fL (80-96); MONOCYTES # (AUTO) 0.5 /CMM (0.1-1.30); MONOCYTES % (AUTO) 9.8 % (2.0-12.0); NEUTROPHILS # (AUTO) 2.8 /CMM (1.8-8.9); PLATELET COUNT (AUTO) 236 /CMM (150-450); RDW COEFFICIENT OF VARIATION 15.8 (11.5-15.0); RED BLOOD CELL COUNT(AUTO) 4.33 MIL/uL (4.5-6.0); WHITE BLOOD COUNT (AUTO) 4.9 K/uL (4.3-11.0)
[2018-02-06 08:43] LABS: CALCIUM, SERUM 8.7 mg/dL (8.5-10.1); CARBON DIOXIDE 28 mmol/L (21-32); CHLORIDE 103 mmol/L (98-107); GLUCOSE 101 mg/dL (74-106); POTASSIUM 3.5 mmol/L (3.5-5.1); SODIUM SERUM 139 mmol/L (136-145); UREA NITROGEN, BLOOD 19 mg/dL (7-18)
[2018-02-06 08:51] LABS: ALANINE AMINOTRANSFERASE 22 U/L (12-78); ALBUMIN 3.5 g/dL (3.4-5.0); ALKALINE PHOSPHATASE 92 U/L (46-116); ASPARTATE AMINOTRANSFERASE 17 U/L (15-37); BILIRUBIN,DIRECT 0.1 mg/dL (0.0-0.2); BILIRUBIN,TOTAL 0.3 mg/dL (0.2-1.0); TOTAL PROTEIN, SERUM 8.1 g/dL (6.4-8.2)
[2018-02-06 08:59] LABS: ACETAMINOPHEN 0 ug/ml (10-30); ALCOHOL, BLOOD < 3 mg/dL (0-0); SALICYLATE 0.8 mg/dL (2.8-20.0)
[2018-02-06 09:26] LABS: APPEARANCE,URINE Clear (CLEAR); BILIRUBIN,URINE Negative (NEGATIVE); BLOOD, URINE Small Ery/uL (NEGATIVE); COLOR,URINE Dark (YELLOW); KETONES,URINE Negative (NEGATIVE); LEUKOCYTE ESTERASE ,URINE Negative (NEGATIVE); NITRITE, URINE Negative (NEGATIVE); PROTEIN,URINE 30 mg/dl (NEGATIVE); UGLUCOSE Negative (NEGATIVE); UROBILINOGEN,URINE 0.2 EU/dL (0.2)
[2018-02-06 09:57] LABS: SQUAMOUS EPITHELIAL CELL,UR Rare /HPF (None Seen); WBC,URINE 0-2 /HPF (0-3)
[2018-02-06 09:58] LABS: BACTERIA,URINE Few /HPF (None Seen); RBC,URINE 0-2 /HPF (0-2)
--- NOTE | 2018-02-06 10:05 | NUR ---
MADELYN CALLED BACK - ETA 1 HR.
[2018-02-06] MEDS ORDERED: PANT40TA2 PO (10:43)
[2018-02-06] MEDS ORDERED: CARV12.52 PO (10:43)
[2018-02-06] MEDS ORDERED: LAMI1TAB PO (10:43)
--- NOTE | 2018-02-06 13:27 | NUR ---
ATTEMPTED TO GIVE REPORT. INSTRUCTED TO TRANSP PT TO ROOM 207
--- NOTE | 2018-02-06 13:33 | NUR ---
REPORT GIVEN TO RN DEVYN ROOM 207
--- NOTE | 2018-02-06 13:34 | NUR ---
PT TRANSP TO 207. STABLE CONDITION. NAD. VSS
--- NOTE | 2018-02-06 14:00 | NUR ---
MS OIL SALES AND SERVICE REP NOTE RECEIVED PATIENT ON A TRANSFER CHAIR. PATIENT IS BEING ADMITTED TO MS FLOOR WITH SUICIDAL ATTEMPT UNDER 5150 HOLD. PATIENT IS ALERT ORIENTED X4. IN NO APPARENT DISTRESS OR DISCOMFORT AT THIS TIME. RESPIRATIONS EVEN AND UNLABORED. PATIENT DEMONSTRATES DEPRESSED BEHAVIOR. REPORTS SUICIDAL THOUGHTS WITH A THOUGHT OUT PLAN. PATIENT ATTEMPTED TO KILL HIMSELF BY WALKING INTO A FREEWAY TO GET RUN OVER BY A CAR. PATIENT REPORTS THESE THOUGHTS HAVE STARTED SINCE THE DAY BEFORE. REPORTS BEING NON-COMPLIANT WITH MEDICATION REGIME. HISTORY OF PREVIOUS SUICIDE ATTEMPT. SITTER ASSIGNED TO THE PATIENT. ALL BELONGINGS CHECKED, DANGEROUS OBJECTS REMOVED FROM UNDER PATIENT'S POSSESSION. PLACED IN THE SAFE. PATIENT WAS MADE COMFORTABLE IN BED. COMPREHENSIVE PHYSICAL ASSESSMENT COMPLETE. ALL THE PAPERWORK SIGNED, DOCTORS NOTIFIED. WILL CONTINUE TO MONITOR AND ENSURE SAFETY.
[2018-02-06] MEDS ORDERED: MAGNESIUM HYDROXIDE 30 ML UDC PO PRN (14:30)
[2018-02-06] MEDS ORDERED: MAG HYDROX/AL HYDROX/SIMETH 30 ML UDC PO PRN (14:30)
--- NOTE | 2018-02-06 15:49 | NUR ---
DR. SANCHEZ MADE OF THE ADMISSION AND GAVE ORDERS.
[2018-02-06 20:00] VITALS: BP 169/98
[2018-02-06] MEDS: ACETAMINOPHEN 325 MG TABLET PO PRN (20:00)
--- NOTE | 2018-02-06 20:06 | NUR ---
MS RN CLOSING NOTE PATIENT IN BED. SLEEPING, EASILY AROUSED WITH VERBAL STIMULI. IN NO APPARENT DISTRESS OR DISCOMFORT AT THIS TIME. DENIES PAIN AND SOB. PATIENT STILL EXPRESSES SADNESS, HOPELESSNESS AND DEPRESSION AND STILL HAS THOUGHTS OF SUICIDE. DENIES HALLUCINATIONS, DENIES THOUGHTS OF HARMING OTHERS. 1:1 SITTER AT BEDSIDE. PATIENT IS COMFORTABLE. SAFETY MEASURES IN PLACE, NO SHARP OBJECTS IN PATIENTS ROOM. NO OTHER OBJECT THAT PATIENT CAN USE TO HARM HIMSELF IS PRESENT. BED IN LOW LOCKED POSITION, SIDE RAILS UP X2, CALL LIGHT WITHIN EASY REACH. SITTER AT BEDSIDE. WILL, ENDORSE TO PM NURSE FOR CHRISTY.
[2018-02-06] MEDS: LORAZEPAM 0.5 MG TABLET PO PRN (20:07)
[2018-02-06] MEDS: TRAZODONE 50 MG TABLET PO SCH (22:08)
[2018-02-06] MEDS: ABACAVIR SULFATE 300 MG TABLET PO SCH (22:09)
--- NOTE | 2018-02-07 06:42 | NUR ---
MS RN NOTES AWAKE & RESPONSIVE. NOT IN ANY DISTRESS. NO SOB NOTED. DENIES ANY PAIN OR DISCOMFORT AT THIS TIME. AM CARE DONE. MONITORED ACCORDINGLY WITH SITTER AT BEDSIDE. CALL LIGHT WITHIN REACH. BED IN LOWEST POSITION. SR UP X 2 FOR SAFETY. WILL ENDORSE TO NEXT SHIFT.
--- NOTE | 2018-02-07 07:30 | NUR ---
MS/RN OPENING NOTE PATIENT ALERT AND ORIENTED X4. DENIES SOB AT THIS TIME. RESPIRATION REGULAR AND UNLABORED. DENIES PAIN AT THIS TIME. PATIENT IN NO APPARENT DISTRESS. DENIES HAVING SUICIDAL THOUGH/IDEATIONS. PATIENT IN NO APPARENT DISTRESS. SITTER BY THE BEDSIDE. BED LOW AND LOCKED. SIDE RAILS UP X3. CALL LIGHT WITHIN REACH. WILL CONTINUE TO MONITOR.
[2018-02-07 08:00] VITALS: BP 121/65
[2018-02-07] MEDS: LAMIVUDINE/ZIDOVUDINE 150-300 1 TAB TABLET PO SCH ×2 (08:23→16:57)
[2018-02-07] MEDS: FLUOXETINE HCL 20 MG CAPSULE PO SCH (08:23)
[2018-02-07] MEDS: PANTOPRAZOLE 40 MG TABLET.DR PO SCH (08:23)
[2018-02-07] MEDS: CARVEDILOL 12.5 MG TABLET PO SCH ×2 (08:23→16:57)
[2018-02-07 09:04] LABS: CHOLESTEROL 150 mg/dL (<200); HDL CHOLESTEROL 74 mg/dL (40-60); LDL 62 mg/dL (0-99); TRIGLYCERIDES 133 mg/dL (30-150)
[2018-02-07 09:06] LABS: ALBUMIN 3.4 g/dL (3.4-5.0); BILIRUBIN,TOTAL 0.4 mg/dL (0.2-1.0); CALCIUM, SERUM 8.6 mg/dL (8.5-10.1); POTASSIUM 3.5 mmol/L (3.5-5.1); TOTAL PROTEIN, SERUM 7.8 g/dL (6.4-8.2)
[2018-02-07] MEDS ORDERED: IV NS 0.9% 1,000 ML IV ONE (12:30)
[2018-02-07] MEDS: LORAZEPAM 0.5 MG TABLET PO PRN (12:40)
--- NOTE | 2018-02-07 18:42 | NUR ---
MS/RN CLOSING NOTE PATIENT ALERT AND ORIENTED X4. DENIES THOUGHTS OF SUICIDE IDEATION. DENIES SOB. RESPIRATION REGULAR AND UNLABORED. DENIES PAIN. PATIENT IN NO APPARENT DISTRESS. 1:1 SITTER BY THE BEDSIDE. RFA G 22 PATENT AND IV FLUIDS INFUSING WITH NO S/S INFILTRATION. PATIENT NOTED TO HAVE STABLE GAIT. VERBAL CUES ARE GIVEN TO KEEP SAFETY AWARENESS HIGH. GOOD AND GENTLE SKIN CARE RENDERED. KEPT CLEAN, DRY AND COMFORTABLE. ALL NEEDS ATTENDED AND ATNICPATED. BED LOW AND LOCKED. SIDE RAILS UP X2. CALL LIGHT WITHIN REACH. WILL ENDORSE TO HOP GROWER.
[2018-02-07 20:00] VITALS: BP 132/73
[2018-02-07] MEDS: TRAZODONE 50 MG TABLET PO SCH (21:11)
[2018-02-07] MEDS: ABACAVIR SULFATE 300 MG TABLET PO SCH (21:11)
--- NOTE | 2018-02-08 07:15 | NUR ---
MS/RN OPENING NOTE PATIENT ALERT AND ORIENTED X4. DENIES PAIN. RESPIRATION REGULAR AND UNLABORED. DENIES SOB. PATIENT IN NO APPARENT DISTRESS. RFA G 22 PATENT AND IV FLUID INFUSING WITH NO S/S INFILTRATION. PATIENT WITH 1:1 SITTER. PATIENT DENIES SUICIDAL IDEATION AT THIS TIME. PATIENT IS CALM AND COOPERATIVE. BED LOW AND LOCKED. SIDE RAILS UP X2. CALL LIGHT WITHIN REACH. WILL CONTINUE TO MONITOR.
[2018-02-08 08:00] VITALS: BP 129/71
[2018-02-08 08:15] LABS: CALCIUM, SERUM 8.2 mg/dL (8.5-10.1); POTASSIUM 3.8 mmol/L (3.5-5.1)
[2018-02-08] MEDS: PANTOPRAZOLE 40 MG TABLET.DR PO SCH (08:58)
[2018-02-08] MEDS: FLUOXETINE HCL 20 MG CAPSULE PO SCH (08:58)
[2018-02-08] MEDS: CARVEDILOL 12.5 MG TABLET PO SCH ×2 (08:59→17:47)
[2018-02-08] MEDS: LAMIVUDINE/ZIDOVUDINE 150-300 1 TAB TABLET PO SCH ×2 (08:59→17:47)
[2018-02-08] MEDS: LORAZEPAM 0.5 MG TABLET PO PRN ×2 (10:30→18:43)
--- NOTE | 2018-02-08 10:40 | NUR ---
MS/RN NOTE AT 1035 PATIENT STATED THAT IF HE GETS DISCHARGED TODAY THEN HE WILL BE SUICIDAL. PER PATIENT HE WILL GO TO A STREET FULL OF CARS TO BE HIT. THE PATIENT DENIES HAVING ANY THOUGHTS OR PLANS FOR HARMING SELF/SUICIDAL AT THIS TIME WHILE BEING IN THE HOSPITAL. 1040 DR BOOGIE IS MADE AWARE AND DR STATED THAT THE PATIENT WILL NOT BE DISCHARGED TODAY. THE PATIENT IS MADE AWARE. CHARGE NURSE MAGDA IS MADE AWARE.
--- NOTE | 2018-02-08 15:59 | NUR ---
UR note: JULIAN quirogaed a clinical review and face sheet to Lucero ([phone]) from [facility] at the fax #: [phone]. Addendum: 02/11/18 at 1137 by PORTILLO JORDAN Augie
[2018-02-08 16:00] VITALS: BP 120/76
--- NOTE | 2018-02-08 16:02 | NUR ---
SW contacted Juan A ([phone]) from [facility] regarding an assisted living placement option.
--- NOTE | 2018-02-08 17:58 | NUR ---
MS/RN CLOSING NOTE PATIENT ALERT AND ORIENTED X4. DENIES PAIN. BREATHING EVEN AND UNLABORED. DENIES PAIN. PATIENT IN ROOM AIR AND OXYGEN SATURATION AT 96%. PATIENT IN NO APPARENT DISTRESS. PATIENT DENIES HAVING THOUGHTS OF SELF, DENIES SUICIDE IDEATIONS. RFA G 22 PATENT AND SALINE LOCKED. PATIENT HAS STABLE GAIT. VERBAL CUES ARE GIVEN TO KEEP SAFETY AWARENESS HIGH. 1:1 SITTER AT THE BEDSIDE. BED LOW AND LOCKED. SIDE RAILS UP X2. CALL LIGHT WITHIN REACH. WILL ENDORSE TO MANAGER OF COMMUNITY RELATIONS.
--- NOTE | 2018-02-08 20:00 | NUR ---
RECIEVED ALERT AND ORIENTATED SPEECH CLEAR REQUISTING JUICE. NO COMPLAINTS. SITTER AT THE BEDSIDE NOTED CALL LIGHT WITHIN REACH AND REVIEVED WITH HIM
[2018-02-08 20:07] VITALS: BP 132/86
[2018-02-08] MEDS: TRAZODONE 50 MG TABLET PO SCH (21:48)
[2018-02-08] MEDS: ABACAVIR SULFATE 300 MG TABLET PO SCH (21:48)
[2018-02-09 05:12] LABS: *BASOS 0 % (Not Estab.); *EOS 2 % (Not Estab.); *EOS, ABSOLUTE 0.1 x10E3/uL (0.0-0.4); *HCT 35.5 % (37.5-51.0); *HGB 11.4 g/dL (13.0-17.7); *IMMATURE GRANULOCYTES 0 % (Not Estab.); *LYMPHOCYTES 31 % (Not Estab.); *LYMPHS, ABSOLUTE 1.6 x10E3/uL (0.7-3.1); *MCH 28.4 pg (26.6-33.0); *MCHC 32.1 g/dL (31.5-35.7); *MCV 89 fL (79-97); *MONOCYTES 7 % (Not Estab.); *MONOS, ABSOLUTE 0.4 x10E3/uL (0.1-0.9); *NEUTROPHILS 60 % (Not Estab.); *NEUTROPHILS, ABSOLUTE 3.1 x10E3/uL (1.4-7.0); *PLT 231 x10E3/uL (150-379); *RBC 4.01 x10E6/uL (4.14-5.80); *RDW 15.9 % (12.3-15.4)
--- NOTE | 2018-02-09 07:22 | NUR ---
CLOSING NOTES SLEPT THRU THE NIGHT SITTER REMAIN AT THE BEDSIDE
--- NOTE | 2018-02-09 07:30 | NUR ---
MS/RN OPENING NOTE PATIENT ALERT AND ORIENTED X4. DENIES SOB. BREATHING EVEN AND UNLABORED. DENIES PAIN. PATIENT IN NO APPARENT DISTRESS. 1:1 SITTER BY THE BEDSIDE. PATIENT DENIES THOUGHTS OF HARMING SELF, DENIES SI. BED LOW AND LOCKED. SIDE RAILS UP X2. CALL LIGHT WITHIN REACH. WILL CONTINUE TO MONITOR.
[2018-02-09] MEDS: PANTOPRAZOLE 40 MG TABLET.DR PO SCH (08:03)
[2018-02-09] MEDS: Fluoxetine 10 mg capsule PO SCH (08:03)
[2018-02-09] MEDS: CARVEDILOL 12.5 MG TABLET PO SCH ×2 (08:04→16:24)
[2018-02-09] MEDS: LAMIVUDINE/ZIDOVUDINE 150-300 1 TAB TABLET PO SCH ×2 (08:04→16:25)
[2018-02-09 08:06] VITALS: BP 118/70
[2018-02-09 09:28] LABS: *% CD 4 POS. LYMPH 10.3 % (30.8-58.5); *% CD 8 POS. LYMPH 69.4 % (12.0-35.5); *ABSOLUTE CD 4 HELPER 165 /uL (359-1519); *ABSOLUTE CD 8 SUPPRESSOR 1110 /uL (109-897); *CD4/CD8 RATIO 0.15 (0.92-3.72)
--- NOTE | 2018-02-09 11:04 | NUR ---
UR note: JULIAN quirogaed a clinical review and face sheet to Lucero ([phone]) from [facility] at the fax #: [phone]. Addendum: 02/11/18 at 1136 by PORTILLO JORDAN Augie
--- NOTE | 2018-02-09 11:05 | NUR ---
JULIAN spoke to Kaykay ([phone] ext. [phone]) from [facility] and discussed the pt. SW was informed that there is an open APS report on the pt and that he has a tendency to refuse placement. JULIAN was also informed that he was living at an assisted living a few months ago called [facility].
--- NOTE | 2018-02-09 11:08 | NUR ---
JULIAN spoke to the admissions department at [facility] ([phone]) and inquired about whether or not the pt can return. JULIAN was informed that the pt cannot return due to him leaving the placement in the middle of the night and not paying his rent.
--- NOTE | 2018-02-09 11:10 | NUR ---
JULIAN called [facility] ([phone]) and was informed that Georgia (gt) would be giving the a call back.
--- NOTE | 2018-02-09 11:13 | NUR ---
JULIAN called Margo ([phone]) from [facility] and was informed that there are no available beds.
--- NOTE | 2018-02-09 11:14 | NUR ---
SW called Albertina ([phone]) from [facility] and was informed that someone would come to the hospital to assess the pt.
--- NOTE | 2018-02-09 15:08 | NUR ---
JULIAN called Cedrick ([phone]) from [facility] and he asked the SW for the History and Physical of the pt to be faxed to their facility. He also stated that he would visit the pt tomorrow and conduct an assessment.
--- NOTE | 2018-02-09 15:09 | NUR ---
JULIAN called the pt's brother, Cipriano Stephenson ([phone]), and spoke to him about the different discharge options for the pt. He stated that an assisted living would be ideal with a private room.
--- NOTE | 2018-02-09 15:57 | NUR ---
Initial Discharge Plan: Pt is currently homeless and stated that he would be able to afford an assisted living or a board and care. Per pt. the SW is sending referrals and trying to get the pt an assisted living placement. SW will work with the pt and the MD regarding discharge planning. SW will form a safe and proper discharge.
[2018-02-09] MEDS: LORAZEPAM 0.5 MG TABLET PO PRN (16:27)
--- NOTE | 2018-02-09 18:07 | NUR ---
MS/RN CLOSING NOTE PATIENT ALERT AND ORIENTED X4. IN NO APPARENT DISTRESS. DENIES PAIN. RESPIRATION REGULAR AND UNLABORED. DENIES SOB. RFA G 22 PATENT AND SALINE LOCKED. ILEOSTOMY BAG DRAINING WELL. ABDOMEN SOFT AND NON-DISTENDED. PATIENT HAS STABLE GAIT. VERBAL CUES ARE GIVEN TO KEEP SAFETY AWARENESS HIGH. BED LOW AND LOCKED. SIDE RAILS UP X2. CALL LIGHT WITHIN REACH. WILL ENDORSE TO FREELANCE PATTERNMAKER.
--- NOTE | 2018-02-09 19:30 | NUR ---
RN NOTES RECEIVED PATIENT IN BED AWAKE, AO X 3, ABLE TO MAKE NEEDS KNOWN. NO ACUTE DISTRESS NOTED. DENIES ANY PAIN AT THIS TIME. DENIES ANY SI/HI. SITTER AT BEDSIDE. IV SITE PATENT, INTACT; FLUSHED. ILEOSTOMY BAG INTACT. SAFETY REMINDERS GIVEN. ON LOW BED WITH BILATERAL UPPER SIDE RAILS UP. CALL NAYAK WITHIN EASY REACH. WILL CONTINUE TO MONITOR.
[2018-02-09 20:00] VITALS: BP 124/78
[2018-02-09] MEDS: TRAZODONE 50 MG TABLET PO SCH (22:09)
[2018-02-09] MEDS: ABACAVIR SULFATE 300 MG TABLET PO SCH (22:10)
[2018-02-10] MEDS: TEMAZEPAM 7.5 MG CAPSULE PO PRN (00:10)
--- NOTE | 2018-02-10 06:42 | NUR ---
RN NOTES PATIENT ASLEEP, EASILY AROUSABLE. RESPIRATIONS EVEN. NO SIGNS OF PAIN NOTED. DENIES ANY SI/HI. DUE MEDS GIVEN WITH NO ASE NOTED. NEEDS ATTENDED. WILL GIVE REPORT TO DAY SHIFT FOR CONTINUITY OF CARE.
--- NOTE | 2018-02-10 07:15 | NUR ---
RN GPS/OVERFLOW OPENING NOTES RECEIVED PT. IN BED SLEEPING, EASILY AROUSABLE A&OX4. 1:1 SITTER IS AT BEDSIDE. PT. DENIES SUICIDAL IDEATION, AND HALLUCINATION, BUT STATED THAT HE IS VERY DEPRESSED, HE SAID THAT HE DOESN'T KNOW WHERE HIS DEBIT CARD IS, AND THAT HIS HIS BROTHER CAN'T REACH HIM. NO S/S OF ACUTE DISTRESS. PT. IS BREATHING UNLABORED, AND EVENLY ON ROOM AIR. BED IS IN LOWEST, AND LOCKED POSITION. 2 SIDE RAILS UP, AND CALL LIGHT WITHIN REACH WITH SITTER. PT.'S ENVIRONMENT WAS CHECKED FOR SAFETY. ALL NEEDS MET. WILL CONTINUE TO ASSESS AND MONITOR.
[2018-02-10 08:00] VITALS: BP 140/82
[2018-02-10] MEDS: PANTOPRAZOLE 40 MG TABLET.DR PO SCH (09:51)
[2018-02-10] MEDS: CARVEDILOL 12.5 MG TABLET PO SCH ×2 (09:52→17:04)
[2018-02-10] MEDS: LAMIVUDINE/ZIDOVUDINE 150-300 1 TAB TABLET PO SCH ×2 (09:52→17:04)
--- NOTE | 2018-02-10 10:14 | NUR ---
UR note: JULIAN quirogaed a clinical review yesterday morning and face sheet to Lucero ([phone]) from [facility] at the fax #: [phone]. Addendum: 02/10/18 at 1015 by PORTILLO JORDAN TODAY MORNING Addendum: 02/11/18 at 1136 by PORTILLO JORDAN Elza*
[2018-02-10] MEDS: Fluoxetine 10 mg capsule PO SCH (10:18)
[2018-02-10 16:11] VITALS: BP 139/84
[2018-02-10] MEDS: LORAZEPAM 0.5 MG TABLET PO PRN (16:13)
[2018-02-10 18:09] LABS: *HIV-1 RNA BY PCR 47050 copies/mL (.); *HIV-1 log10 RNA 4.673 (.)
--- NOTE | 2018-02-10 19:17 | NUR ---
RN GPS/OVERFLOW CLOSING NOTES 1:1 SITTER AT BEDSIDE.PT. IS IN BED AWAKE, WATCHING TV. PT. DENIES SUICIDAL IDEATION, AND HALLUCINATION. NO S/S OF ACUTE DISTRESS. PT. IS BREATHING UNLABORED, AND EVENLY ON ROOM AIR. BED IS IN LOWEST, AND LOCKED POSITION. 2 SIDE RAILS UP, AND CALL LIGHT WITHIN REACH WITH THE SITTER. PT.'S ENVIRONMENT WAS CHECKED FOR SAFETY. ALL NEEDS MET. WILL ENDORSE REPORT TO NURSE.
--- NOTE | 2018-02-10 19:30 | NUR ---
RN NOTES RECEIVED PATIENT IN BED AWAKE, AO X 3, ABLE TO MAKE NEEDS KNOWN. NO ACUTE DISTRESS NOTED. DENIES ANY PAIN AT THIS TIME. DENIES ANY SI/HI. BEHAVIOR IS APPROPRIATE. SITTER AT BEDSIDE. IV SITE PATENT, INTACT; FLUSHED. ILEOSTOMY BAG INTACT. SAFETY REMINDERS GIVEN. ON LOW BED WITH BILATERAL UPPER SIDE RAILS UP. CALL NAYAK WITHIN EASY REACH. WILL CONTINUE TO MONITOR.
[2018-02-10 20:00] VITALS: BP_SYST 141; BP_SYST 142; BP_DIAS 74
[2018-02-10] MEDS: TRAZODONE 50 MG TABLET PO SCH (22:01)
[2018-02-10] MEDS: ABACAVIR SULFATE 300 MG TABLET PO SCH (22:02)
[2018-02-10] MEDS: ACETAMINOPHEN 325 MG TABLET PO PRN (22:08)
[2018-02-11] MEDS: TEMAZEPAM 7.5 MG CAPSULE PO PRN ×2 (01:02→23:58)
--- NOTE | 2018-02-11 07:39 | NUR ---
MS/RN Patient received Patient received from mold shifter. Calm and cooperative, no issues or concerns. Sitter remains at bedside as patient continues on . Will continue to monitor and ensure safety.
[2018-02-11] MEDS: CARVEDILOL 12.5 MG TABLET PO SCH ×2 (07:56→16:53)
[2018-02-11] MEDS: Fluoxetine 10 mg capsule PO SCH (07:56)
[2018-02-11] MEDS: LAMIVUDINE/ZIDOVUDINE 150-300 1 TAB TABLET PO SCH ×2 (07:56→16:52)
[2018-02-11] MEDS: PANTOPRAZOLE 40 MG TABLET.DR PO SCH (07:56)
[2018-02-11 08:00] VITALS: BP 129/78
[2018-02-11 08:19] VITALS: BP 129/78
--- NOTE | 2018-02-11 09:00 | NUR ---
MS/RN Medications Morning medications administered, compliant with medications.
--- NOTE | 2018-02-11 11:36 | NUR ---
UR note: JULIAN faxed a clinical review to Lucero ([phone]) from [facility] at the fax #: [phone].
--- NOTE | 2018-02-11 11:37 | NUR ---
JULIAN called the pt's brother, Cipriano Stephenson ([phone]), and spoke to him about how the pt is being discharged today and how there is no other option other than a intermediate or motel due to the pt being denied by all the other assisted livings.
--- NOTE | 2018-02-11 11:38 | NUR ---
JULIAN called the pt's partner, Cipriano Ventura ([phone]), for the third time but has not had any success reaching him.
--- NOTE | 2018-02-11 11:39 | NUR ---
SW called [facility] ([phone]) and received information that the pt was not accepted.
--- NOTE | 2018-02-11 11:41 | NUR ---
JULIAN called Simin ([phone]) from [facility] and left a message regarding this pt's referral.
--- NOTE | 2018-02-11 13:00 | NUR ---
MS/RN Behavior Patient has remained calm and cooperative throughout the morning. No behavior concerns or outbursts.
--- NOTE | 2018-02-11 13:07 | NUR ---
JULIAN faxed a referral to Simin ([phone]) from [facility] to the number: [phone].
--- NOTE | 2018-02-11 13:29 | NUR ---
Simin ([phone]) from [facility] called the SW and informed her that the pt cannot be accepted due to his insurance.
--- NOTE | 2018-02-11 14:25 | NUR ---
[facility] ([phone][facility] and inquired about open beds. JULIAN was told that there are a couple of beds left for the day.
--- NOTE | 2018-02-11 14:29 | NUR ---
SW talked to the pt and informed him that there is no option for him other than being discharged to a homeless correction. Pt became very agitated and verbally aggressive. Pt stated that he is refusing to go to a homeless correction.
--- NOTE | 2018-02-11 14:30 | NUR ---
JULIAN called the pt's partner, Cipriano Ventura ([phone]), and asked if the pt can stay with him for a couple of days until he gets his pension deposit but the partner stated that he is also homeless.
--- NOTE | 2018-02-11 14:57 | NUR ---
JULIAN informed the pt's psychiatrist, Dr. Calabrese, about the pt's current suicidal ideation and he decided not to discharge the pt today.
--- NOTE | 2018-02-11 15:07 | NUR ---
JULIAN called Cedrick ([phone]) from [facility] and reminded him that the History and Physical was sent and that JULIAN did not receive a call about an assessment. He stated that he would look it over and call JULIAN back.
--- NOTE | 2018-02-11 15:08 | NUR ---
JULIAN spoke to Joy ([phone] ext. [phone]) from [facility] and informed her that the pt was supposed to discharge but due to suicidal ideation he cannot be released. JULIAN asked for a list of SNFs that are authorized by [facility] to be faxed over and informed the caser shoe parts that she will fax over a physical therapy order for SNF placement as soon as she can.
--- NOTE | 2018-02-11 15:20 | NUR ---
JULIAN talked to the Charge Nurse on the unit about putting in a physical therapy order for the pt. That will be faxed to the insurance the following day so that the pt can be referred to SNFs.
--- NOTE | 2018-02-11 15:25 | NUR ---
MS/RN PT eval Physical therapy evaluation ordered LILLIAN as patient requesting to go to a prison facility upon discharge.
[2018-02-11 16:00] VITALS: BP 135/79
--- NOTE | 2018-02-11 19:04 | NUR ---
MS/RN End note Patient has remained calm and cooperative throughout the shift, no behavior concerns or outbursts. Will endorse to night shift supervisor.
[2018-02-11 20:00] VITALS: BP 147/83
[2018-02-11] MEDS: ABACAVIR SULFATE 300 MG TABLET PO SCH (22:02)
[2018-02-11] MEDS: TRAZODONE 50 MG TABLET PO SCH (22:02)
[2018-02-12 04:00] VITALS: BP 140/88
--- NOTE | 2018-02-12 07:30 | NUR ---
RN OPENING NOTES RECEIVED PATIENT AWAKE IN BED IN NO ACUTE SIGNS OF DISTRESS. SITTER AT BEDSIDE. A/O X 3, ABLE TO MAKE NEEDS KNOWN. DENIES ANY PAIN. DENIES SI/HI AT THIS TIME. BEHAVIOR IS CALM AND APPROPRIATE. IV ACCESS ON RFA PATENT AND INTACT, FLUSHES EASILY. ILEOSTOMY BAG INTACT. SAFETY REMINDERS GIVEN. ON LOW BED WITH BILATERAL UPPER SIDE RAILS UP. CALL NAYAK WITHIN EASY REACH. WILL CONTINUE TO MONITOR.
[2018-02-12] MEDS: PANTOPRAZOLE 40 MG TABLET.DR PO SCH (07:51)
[2018-02-12 08:00] VITALS: BP 107/67
[2018-02-12] MEDS: CARVEDILOL 12.5 MG TABLET PO SCH ×2 (08:49→16:52)
[2018-02-12] MEDS: LAMIVUDINE/ZIDOVUDINE 150-300 1 TAB TABLET PO SCH ×2 (08:49→16:52)
[2018-02-12] MEDS ORDERED: Fluoxetine 10 mg capsule PO SCH (09:00)
--- NOTE | 2018-02-12 11:21 | NUR ---
UR note: JULIAN faxed the physical therapy assessment to Fox ([phone]) from [facility] at the fax #: [phone].
--- NOTE | 2018-02-12 11:21 | NUR ---
UR note: JULIAN faxed a clinical review to Lucero ([phone]) from [facility] at the fax #: [phone].
--- NOTE | 2018-02-12 15:11 | NUR ---
JULIAN called Joy ([phone]. [phone]) from [facility] and left a message asking for an update regarding the clinical and the physical therapy assessment that was faxed.
[2018-02-12] MEDS: ACETAMINOPHEN 325 MG TABLET PO PRN (15:28)
--- NOTE | 2018-02-12 15:31 | NUR ---
RN NOTES PATIENT COMPLAINTS OF MILD HEADACHE WITH INTENSITY OF 3/10, PRN TYLENOL 650MG TABS PO GIVEN. WILL CONTINUE TO MONITOR.
[2018-02-12 16:00] VITALS: BP 140/88
--- NOTE | 2018-02-12 18:17 | NUR ---
RN CLOSING NOTES PATIENT AWAKE AND RESTING IN BED WITH SITTER AT BEDSIDE. A/O X 3-4, SAME ABLE TO MAKE NEEDS KNOWN. DENIES ANY PAIN, DENIES SI/HI ALL THROUGHOUT THE DAY. BEHAVIOR IS CALMED AND APPROPRIATE. IV ACCESS ON RFA PATENT AND INTACT, FLUSHES EASILY. ILEOSTOMY BAG INTACT, PT CHANGED BAG BY ITSELF. ALL SAFETY MEASURES KEPT IN PLACE. PT ON LOW BED WITH BILATERAL UPPER SIDE RAILS UP. CALL NAYAK WITHIN EASY REACH. ALL NEEDS AND CARE ATTENDED WELL. WILL ENDORSE TO CHIEF GREEN OFFICER NURSE FOR CHRISTY.
--- NOTE | 2018-02-12 19:50 | NUR ---
RN OPENING NOTES RECEIVED REPORT FROM DAYSHIFT OCTAVIO RODRIGUEZ. FOUND Pt AWAKE, RESTING IN BED. NO S/S OF ACUTE DISTRESS OR SOB NOTED. Pt IS A/OX4, VERBAL, ABLE TO MAKE NEEDS KNOWN. GPS OVERFLOW. Pt IS ON 5249; EXP 02/22/18. SITTER AT BEDSIDE. SAFETY MEASURES IN PLACE. BED LOW, LOCKED, HOB ELEVATED, SIDE RAILS UP, CALL LIGHT AND BEDSIDE TABLE WITHIN REACH. WILL CONTINUE TO MONITOR Pt THROUGHOUT THE NIGHT FOR SAFETY.
[2018-02-12 20:00] VITALS: BP 129/78
[2018-02-12] MEDS: LORAZEPAM 0.5 MG TABLET PO PRN (21:03)
[2018-02-12] MEDS: TRAZODONE 50 MG TABLET PO SCH (22:17)
[2018-02-12] MEDS: ABACAVIR SULFATE 300 MG TABLET PO SCH (22:17)
--- NOTE | 2018-02-13 06:52 | NUR ---
RN CLOSING NOTES NO SIGNIFICANT CHANGES IN Pt's CONDITION. Pt REMAINS STABLE AT THIS TIME. NO S/S OF ACUTE DISTRESS OR SOB NOTED DURING THE NIGHT. ALL NEEDS MET AND ATTENDED TO. ALL ORDERED MEDS GIVEN. SAFETY MEASURES IN PLACE. SITTER AT BEDSIDE. WILL ENDORSE TO DAYSHIFT RN FOR Pt's CHRISTY.
[2018-02-13 06:58] LABS: BASOPHILS % (AUTO) 0.4 % (0.0-2.0); EOSINOPHILS % (AUTO) 2.1 % (0.0-6.0); HEMATOCRIT 33 % (39-51); HEMOGLOBIN 10.9 g/dL (13.5-17.5); LYMPHOCYTES # (AUTO) 1.7 /CMM (0.8-4.8); LYMPHOCYTES % (AUTO) 32.8 % (20.0-44.0); MEAN CORPUSCULAR HEMOGLOBIN 29 PG (26.0-33.0); MEAN CORPUSCULAR HGB CONC 33 g/dl (31.0-36.0); MEAN CORPUSCULAR VOLUME 88 fL (80-96); MONOCYTES # (AUTO) 0.3 /CMM (0.1-1.30); MONOCYTES % (AUTO) 6.5 % (2.0-12.0); NEUTROPHILS # (AUTO) 3.1 /CMM (1.8-8.9); NEUTROPHILS % (AUTO) 58.2 % (43.0-81.0); PLATELET COUNT (AUTO) 187 /CMM (150-450); RDW COEFFICIENT OF VARIATION 15.4 (11.5-15.0); RED BLOOD CELL COUNT(AUTO) 3.78 MIL/uL (4.5-6.0); WHITE BLOOD COUNT (AUTO) 5.3 K/uL (4.3-11.0)
[2018-02-13 07:30] LABS: CALCIUM, SERUM 8.3 mg/dL (8.5-10.1); CREATININE 1.7 mg/dL (0.6-1.3); MAGNESIUM 1.7 mg/dL (1.8-2.4); PHOSPHORUS 3.2 mg/dL (2.5-4.9); POTASSIUM 4.1 mmol/L (3.5-5.1)
--- NOTE | 2018-02-13 07:30 | NUR ---
RN OPENING NOTES PATIENT RECEIVED AWAKE IN BED WITH SITTER AT BEDSIDE. NO ACUTE SIGNS OF DISTRESS NOTED. A/O X 4. VERBALLY RESPONSIVE, DENIES ANY PAIN OR DISCOMFORTS AT THIS TIME. DENIES SI/HI. BEHAVIOR IS CALM AND APPROPRIATE. PT IS 5250 EXPIRING ON 02/22/2018. ON ROOM AIR, BREATHING EVEN AND UNLABORED. PT WITH ILEOSTOMY, BAG IN PLACE WITH SMALL AMOUNT OF SOFT YELLOWISH BROWNISH STOOL NOTED. IV ACCESS ON RFA INTACT AND PATENT, FLUSHES WELL. SAFETY MEASURES IN PLACE. ON LOW BED WITH B/L UPPER SIDE RAILS UP. CALL NAYAK WITHIN EASY REACH. WILL CONTINUE TO MONITOR.
[2018-02-13] MEDS: PANTOPRAZOLE 40 MG TABLET.DR PO SCH (07:50)
[2018-02-13 08:00] VITALS: BP 134/88
[2018-02-13] MEDS: LAMIVUDINE/ZIDOVUDINE 150-300 1 TAB TABLET PO SCH ×2 (08:11→16:29)
[2018-02-13] MEDS: CARVEDILOL 12.5 MG TABLET PO SCH ×2 (08:12→16:29)
[2018-02-13] MEDS: FLUOXETINE HCL 20 MG CAPSULE PO SCH (08:13)
[2018-02-13] MEDS ORDERED: MAGNESIUM OXIDE 400 MG TABLET PO ONE (12:00)
[2018-02-13 16:00] VITALS: BP 127/80
--- NOTE | 2018-02-13 19:30 | NUR ---
MS RN OPENING NOTES: RECEIVED PT IN BED AND IS A/OX4. PT HAS SITTER AT BEDSIDE. PT HAS IV ON R FOREARM #20G AND IS PATENT AND INTACT. CURRENTLY S/L. PT ALSO HAS ILEOSTOMY BAG. NO SOB NOTED. NO S/S OF DISTRESS. CALL LIGHT WITHIN PT'S REACH. BED KEPT IN LOW, LOCKED POSITION, AND SIDE RAILS X 2UP. WILL CONTINUE TO MONITOR PT.
--- NOTE | 2018-02-13 19:42 | NUR ---
RN CLOSING NOTES PATIENT IN BED AWAKE AT THIS TIME. SITTER AT BEDSIDE. A/O X 3-4, SAME ABLE TO MAKE NEEDS KNOWN. DENIES ANY PAIN, DENIES SI/HI ALL THROUGHOUT THE DAY. BEHAVIOR IS CALMED AND APPROPRIATE. IV ACCESS ON RFA PATENT AND INTACT, FLUSHES EASILY. ILEOSTOMY BAG INTACT, PT CHANGED BAG BY ITSELF. ALL SAFETY MEASURES KEPT IN PLACE. PT ON LOW BED WITH BILATERAL UPPER SIDE RAILS UP. CALL NAYAK WITHIN EASY REACH. ALL NEEDS AND CARE ATTENDED WELL. ENDORSED TO RN NURSERY NURSE FOR CHRISTY.
[2018-02-13 20:00] VITALS: BP 134/84
[2018-02-13] MEDS: TRAZODONE 50 MG TABLET PO SCH (21:41)
[2018-02-13] MEDS: ABACAVIR SULFATE 300 MG TABLET PO SCH (21:41)
[2018-02-14] MEDS: TEMAZEPAM 7.5 MG CAPSULE PO PRN ×2 (00:27→23:30)
--- NOTE | 2018-02-14 00:27 | NUR ---
GPS NOTE: PT REQUESTED FOR SLEEPING AID. PT WAS ADMINISTERED RESTORIL 15MG PO. WILL CONTINUE TO MONITOR PT.
--- NOTE | 2018-02-14 06:46 | NUR ---
RN NOTE: PT ASLEEP AT THIS TIME. PT ON ROOM AIR. NO SOB NOTED. NO S/S OF DISTRESS. SITTER AT BEDSIDE. PT HAS IV ON R FOREARM #20G AND IS PATENT AND INTACT. CURRENTLY H/L. PT HAS ILEOSTOMY BAG. PT DOES SELF CARE ON HIS OWN. CALL LIGHT WITHIN PT'S REACH. BED KEPT IN LOW, LOCKED POSITION, AND SIDE RAILS X 2UP. WILL ENDORSE TO AM NURSE FOR CHRISTY.
--- NOTE | 2018-02-14 07:50 | NUR ---
RN NOTES PATIENT A/OX4, BREATHING EVEN AND UNLABORED, NO DISTRESS NOTED, PATIENT DENIES SI/HI, SITTER AT BEDSIDE, SAFETY MEASURES IN PLACED, WILL CONTINUE TO MONITOR.
[2018-02-14 08:00] VITALS: BP 130/76
[2018-02-14] MEDS: PANTOPRAZOLE 40 MG TABLET.DR PO SCH (08:36)
[2018-02-14] MEDS: CARVEDILOL 12.5 MG TABLET PO SCH ×2 (08:37→16:53)
[2018-02-14] MEDS: LAMIVUDINE/ZIDOVUDINE 150-300 1 TAB TABLET PO SCH ×2 (08:44→16:53)
[2018-02-14] MEDS: FLUOXETINE HCL 20 MG CAPSULE PO SCH (11:02)
[2018-02-14 16:00] VITALS: BP 133/83
--- NOTE | 2018-02-14 18:11 | NUR ---
RN NOTES PT DENIES SI/HI AT THIS TIME, NO SIGNIFICANT CHANGE, DENIES DISCOMFORT AT THIS TIME, ASSISTED WITH ADLS, SITTER AT BEDSIDE, SAFETY MEASURES IN PLACED, WILL ENDORSE TO DRY ROOM ATTENDANT FOR CHRISTY.
[2018-02-14] MEDS: LORAZEPAM 0.5 MG TABLET PO PRN (18:21)
--- NOTE | 2018-02-14 19:49 | NUR ---
GPS OV RN NOTES SITTING ON BED A/O X4,ABLE TO VERBALIZED NEEDS,HAVING SNACKS AT THE MOMENT.SITTER AT BEDSIDE FOR 5250 HOLD.WILL CONTINUE TO MONITOR BEHAVIOR.
[2018-02-14 20:00] VITALS: BP 154/96
[2018-02-14] MEDS: ABACAVIR SULFATE 300 MG TABLET PO SCH (21:56)
[2018-02-14] MEDS: TRAZODONE 50 MG TABLET PO SCH (21:56)
--- NOTE | 2018-02-14 22:00 | NUR ---
MS RN NOTES DUE PO MEDS GIVEN,TAKEN WELL
--- NOTE | 2018-02-14 23:30 | NUR ---
MS RN NOTES AWAKE,ASKING FOR SLEEPING PILL.MEDICATED WITH RESTORIL 15MG PO ORDERED FOR INSOMNIA.
--- NOTE | 2018-02-15 06:00 | NUR ---
GPS OV RN NOTES SLEPT 6 HOURS AFTER TAKING RESTORIL 15MG PO.REMAINS CALM.MED COMPLIANT,DENIES SUICIDAL IDEATION.SITTER AT BEDSIDE.D/C PLAN,AWAITS PLACEMENT PER CASE MANAGEMENT.WILL ENDORSE TO MORNING NURSE.
[2018-02-15 08:00] VITALS: BP 127/88
[2018-02-15] MEDS: FLUOXETINE HCL 20 MG CAPSULE PO SCH (08:02)
[2018-02-15] MEDS: CARVEDILOL 12.5 MG TABLET PO SCH ×2 (08:02→16:36)
[2018-02-15] MEDS: PANTOPRAZOLE 40 MG TABLET.DR PO SCH (08:02)
[2018-02-15] MEDS: LAMIVUDINE/ZIDOVUDINE 150-300 1 TAB TABLET PO SCH ×2 (08:02→16:36)
--- NOTE | 2018-02-15 11:29 | NUR ---
UR note: JULIAN spoke to Lucero ([phone]) from [facility] regarding updates with the pt. JULIAN informed her that the pt needs a facility because of his suicidal ideations and the psychiatrists discomfort with the homeless discharge. Lucero asked the SW to fax the physical therapy assessment one more time and then stated that she would send out referrals once she receives it.
--- NOTE | 2018-02-15 11:29 | NUR ---
UR note: JULIAN faxed a clinical review to Lucero ([phone]) from [facility] at the fax #: [phone].
--- NOTE | 2018-02-15 11:31 | NUR ---
SW spoke to the pt and he informed the SW that he has his social security money now but he lost the card so he is unable to pay for a motel. SW told him that he can call and access the card information as a backup plan if a facility does not accept him. Pt agreed to this plan.
[2018-02-15] MEDS: CHOLECALCIFEROL 1,000 UNIT TABLET (VIT D3) PO SCH (12:07)
--- NOTE | 2018-02-15 15:47 | NUR ---
UR note: JULIAN spoke to Lucero ([phone] ext [phone]) from [facility] and she stated that she would call the SW back tomorrow with a list of SNFs.
[2018-02-15] MEDS ORDERED: MAGNESIUM OXIDE 400 MG TABLET PO ONE (16:00)
[2018-02-15 16:33] VITALS: BP 128/79
--- NOTE | 2018-02-15 18:17 | NUR ---
MS RN notes Patient in bed, good appetite. No episode of agitated behavior during the shift. Compliant with medication, colostomy intact with stool yellow brown soft and liquid. Magnesium supplemented today as ordered. On 5150 hold, cont. management per psych. 1:1 sitter at the bedside. Awaits placement. Will endorse to oncoming RN.
--- NOTE | 2018-02-15 19:23 | NUR ---
MS RN OPENING NOTES: RECEIVED PT ON ROOM AIR. SITTER AT BEDSIDE. NO SOB NOTED/ NO S/S OF DISTRESS NOTED. NO IV NOTED. PT HAS COLOSTOMY BAG AND IS INTACT. CALL LIGHT WITHIN PT'S REACH. BED KEPT IN LOW, LOCKED POSITION, AND SIDE RAILS X 2UP. WILL CONTINUE TO MONITOR PT.
[2018-02-15 20:00] VITALS: BP 118/72
[2018-02-15] MEDS: ABACAVIR SULFATE 300 MG TABLET PO SCH (21:52)
[2018-02-15] MEDS: TRAZODONE 50 MG TABLET PO SCH (21:52)
[2018-02-16] MEDS: TEMAZEPAM 7.5 MG CAPSULE PO PRN (00:13)
--- NOTE | 2018-02-16 00:14 | NUR ---
GPS NOTE: PT SAID HE CANNOT SLEEP AND REQUESTING FOR SLEEPING AID. PT WAS ADMINISTERED RESTORIL 15MG PO. WILL CONTINUE TO MONITOR.
--- NOTE | 2018-02-16 07:23 | NUR ---
GPS CLOSING NOTE: ALL NEEDS WERE ATTENDED AND ANTICIPATED FOR. PT ASLEEP AT THIS TIME. PT ON ROOM AIR AND TOLERATING WELL. CALL LIGHT WITHIN PT'S REACH. SITTER AT BEDSIDE. NO IV. BED KEPT IN LOW, LOCKED POSITION, AND SIDE RAILS X 2UP. ENDORSED TO AM NURSE FOR CHRISTY.
--- NOTE | 2018-02-16 07:49 | NUR ---
MS RN OPENING NOTES RECEIVED PT LAYING IN BED, RESTING COMFORTABLY. EASILY AROUSABLE. PT IS A/OX4, AFEBRILE. RESPIRATIONS ARE EVEN AND UNLABORED, NOT IN ANY ACUTE DISTRESS NOTED. DENIES ANY PAIN, NO C/O SOB, N/V. NO IV ACCESS. PT HAS AN ILEOSTOMY AND PT STATED HE IS ABLE TO CHANGE IT BY HIMSELF. PT HAS A SITTER AT BEDSIDE FOR HX OF POSSIBLE SI. SAFETY MEASURES ARE IN PLACE. WILL CONTINUE TO MONITOR THROUGHOUT SHIFT FOR CONTINUITY OF CARE.
[2018-02-16 08:00] VITALS: BP 140/86
[2018-02-16] MEDS: CHOLECALCIFEROL 1,000 UNIT TABLET (VIT D3) PO SCH (08:27)
[2018-02-16] MEDS: PANTOPRAZOLE 40 MG TABLET.DR PO SCH (08:27)
[2018-02-16] MEDS: LAMIVUDINE/ZIDOVUDINE 150-300 1 TAB TABLET PO SCH ×2 (08:27→16:22)
[2018-02-16] MEDS: FLUOXETINE HCL 20 MG CAPSULE PO SCH (08:27)
[2018-02-16] MEDS: CARVEDILOL 12.5 MG TABLET PO SCH ×2 (08:27→16:22)
--- NOTE | 2018-02-16 11:04 | NUR ---
UR note: JULIAN faxed a clinical review to Lucero ([phone] ext [phone]) from [facility] at the fax #: [phone].
[2018-02-16 11:14] LABS: CALCITRIOL VIT D,1, 25 DIHYDRO 27.8 pg/mL (19.9-79.3)
--- NOTE | 2018-02-16 11:45 | NUR ---
UR note: SW spoke to Lucero ([phone] ext [phone]) from [facility] and she informed the SW that the pt does not meet the criteria needs for a residential facility. She then redirected the SW to Iqra ([phone]) from [facility] who is now looking into chcf placement.
--- NOTE | 2018-02-16 11:46 | NUR ---
UR Note: JULIAN called Iqra ([phone]) from [email or web address] and left a message on her voicemail regarding any updates with the pt.
--- NOTE | 2018-02-16 14:56 | NUR ---
UR note: JULIAN spoke to Lucero ([phone] ext [phone]) from [facility] and asked for an update. She stated that they are still currently working on finding placement.
--- NOTE | 2018-02-16 18:26 | NUR ---
MS RN CLOSING NOTES ALL DUE MEDS GIVEN, NEEDS MET AND RENDERED. PT REMAINS A/OX4, AFEBRILE. RESPIRATIONS ARE EVEN AND UNLABORED, NOT IN ANY ACUTE DISTRESS NOTED. NO C/O PAIN, SOB, N/V.PT ABLE TO CHANGE ILEOSTOMY BAG BY HIMSELF. NO S/SX OF INFECTION NOTED. SAFETY MEASURES ARE IN PLACE. SITTER NOTED AT BEDSIDE. WILL ENDORSE TO NEXT SHIFT FOR CONTINUITY OF CARE.
--- NOTE | 2018-02-16 19:25 | NUR ---
MS RN OPENING NOTES: RECEIVED PT IN BED AND IS ON ROOM AIR TOLERATING WELL. PT IS A/OX4. PT SITTING UP IN BED. SITTER AT BEDSIDE. NO IV NOTED. CALL LIGHT WITHIN PT'S REACH. BED KEPT IN LOW, LOCKED POSITION, AND SIDE RAILS X 2UP. WILL CONTINUE TO MONITOR PT.
[2018-02-16 20:00] VITALS: BP 117/71
[2018-02-16] MEDS: ABACAVIR SULFATE 300 MG TABLET PO SCH (22:03)
[2018-02-16] MEDS: TRAZODONE 50 MG TABLET PO SCH (22:03)
[2018-02-17] MEDS: TEMAZEPAM 7.5 MG CAPSULE PO PRN ×2 (00:14→23:34)
--- NOTE | 2018-02-17 00:17 | NUR ---
MS RN NOTES: PT REQUESTED FOR SLEEPING AID. PT WAS ADMINISTERED RESTORIL 15MG PO.
--- NOTE | 2018-02-17 06:50 | NUR ---
RN CLOSING NOTES: ALL NEEDS WERE ATTENDED AND ANTICIPATED FOR. PT ASLEEP IN BED COMFORTABLY. PT ON ROOM AIR AND TOLERATING WELL. SITTER AT BEDSIDE. ILEOSTOMY BAG REMAINS IN PLACE AND IS INTACT. PT INSISTS HE DOES HIS OWN SELF-CARE. NO IV NOTED. CALL LIGHT WITHIN PT'S REACH. BED KEPT IN LOW, LOCKED POSITION, AND SIDE RAILS X 2UP. WILL ENDORSE TO AM NURSE FOR CHRISTY.
--- NOTE | 2018-02-17 07:39 | NUR ---
MS RN OPENING NOTES RECEIVED PT LAYING IN BED, RESTING COMFORTABLY WITH HOB ELEVATED. PT IS A/O X4, AFEBRILE. RESPIRATIONS ARE EVEN AND UNLABORED, NOT IN ANY ACUTE DISTRESS NOTED. PT DENIES ANY PAIN AT THIS TIME, NO C/O SOB, N/V. NO IV ACCESS. SITTER AT BEDSIDE. WILL CONTINUE TO MONITOR THROUGHOUT SHIFT.
[2018-02-17 08:00] VITALS: BP 139/79
[2018-02-17] MEDS: FLUOXETINE HCL 20 MG CAPSULE PO SCH (08:58)
[2018-02-17] MEDS: CHOLECALCIFEROL 1,000 UNIT TABLET (VIT D3) PO SCH (08:58)
[2018-02-17] MEDS: LAMIVUDINE/ZIDOVUDINE 150-300 1 TAB TABLET PO SCH ×2 (08:59→16:08)
[2018-02-17] MEDS: CARVEDILOL 12.5 MG TABLET PO SCH ×2 (08:59→16:08)
[2018-02-17] MEDS: PANTOPRAZOLE 40 MG TABLET.DR PO SCH (08:59)
--- NOTE | 2018-02-17 14:01 | NUR ---
UR Note: JULIAN called Iqra ([phone]) from [facility] and left a message on her voicemail regarding any updates with the pt.
--- NOTE | 2018-02-17 14:01 | NUR ---
UR note: JULIAN faxed a clinical review to Lucero ([phone] ext [phone]) from [facility] at the fax #: [phone].
--- NOTE | 2018-02-17 14:02 | NUR ---
UR note: JULIAN spoke to Lucero ([phone] ext [phone]) from [facility] and asked for an update. She said that she would contact Iqra york since the SW has been unable to reach her and then call the SW back.
--- NOTE | 2018-02-17 14:08 | NUR ---
JULIAN reached out to Nadine ([phone]) from [facility] and informed her that there is a pt that she would like to refer to her.
[2018-02-17] MEDS: LORAZEPAM 0.5 MG TABLET PO PRN (17:17)
--- NOTE | 2018-02-17 18:10 | NUR ---
MS/GPS TRANSFER NOTES GAVE REPORT TO BRIANDA CUNNINGHAM. PT REMAINS A/O X4, AFEBRILE. RESPIRATIONS ARE EVEN AND UNLABORED, NOT IN ANY ACUTE DISTRESS NOTED. PUPILS ARE REACTIVE TO LIGHT. BILATERAL HAND PIN BALL MACHINE MECHANIC ARE STRONG AND EQUAL. ABDOMEN IS SOFT AND NONDISTENDED. DENIES ANY BLADDER DISCOMFORT. NO IV ACCESS. NO SKIN ISSUES NOTED. PT HAS AN ILEOSTOMY AND ABLE TO CHANGE BAG BY HIMSELF. A COUPLE ILEOSTOMY BAGS WERE PROVIDED. PT BROUGHT ALL BELONGINGS WITH HIM. ACCOMPANIED PT VIA WHEELCHAIR TO RM 211-A IN STABLE CONDITION.
[2018-02-17 21:09] VITALS: BP 126/77
[2018-02-17] MEDS: ABACAVIR SULFATE 300 MG TABLET PO SCH (21:28)
[2018-02-17] MEDS: TRAZODONE 50 MG TABLET PO SCH (21:28)
--- NOTE | 2018-02-18 08:42 | NUR ---
Nadine ([phone]) from [facility] called and informed the SW that her board and care is far but she does have a male room available if the pt is interested and does not need to be local.
--- NOTE | 2018-02-18 08:43 | NUR ---
UR note: JULIAN faxed a clinical review to Lucero ([phone] ext [phone]) from [facility] at the fax #: [phone].
[2018-02-18 08:45] VITALS: BP 131/79
[2018-02-18] MEDS: FLUOXETINE HCL 20 MG CAPSULE PO SCH (08:48)
[2018-02-18] MEDS: CARVEDILOL 12.5 MG TABLET PO SCH ×2 (08:49→16:19)
[2018-02-18] MEDS: CHOLECALCIFEROL 1,000 UNIT TABLET (VIT D3) PO SCH (08:49)
[2018-02-18] MEDS: PANTOPRAZOLE 40 MG TABLET.DR PO SCH (08:49)
[2018-02-18] MEDS: LAMIVUDINE/ZIDOVUDINE 150-300 1 TAB TABLET PO SCH ×2 (08:52→16:20)
--- NOTE | 2018-02-18 12:13 | NUR ---
UR Note: SW called Iqra ([phone]) from [facility] and discussed the pt's discharge plan. She stated that their social workers are looking into board and cares as well as SNFs but are primarily focusing on board and cares. Iqra would like the SW to call her back when she updates the pt about the one that was found in the [facility].
--- NOTE | 2018-02-18 12:21 | NUR ---
UR Note: SW called Iqra ([phone]) from [facility] and informed her that the pt rejected the SW's board and care options and would like placement in the [place] region.
--- NOTE | 2018-02-18 12:21 | NUR ---
SW spoke to the pt and informed him about the [facility] placement option and he denied the placement.
--- NOTE | 2018-02-18 12:29 | NUR ---
JULIAN called Estelita Bergman ([phone]) and left a message for Lashaun stating that there are two patients that would like to be referred to their facility.
--- NOTE | 2018-02-18 12:31 | NUR ---
JULIAN called [facility] and spoke to Leonora ([phone]) and stated that there are two patients that would like to be referred to their facility. She asked the SW to fax the H&P over to the fax number: [phone].
--- NOTE | 2018-02-18 13:54 | NUR ---
Leonora ([phone]) from [facility] called the SW and informed her that the pt was denied.
[2018-02-18 16:00] VITALS: BP 140/79
[2018-02-18 20:00] VITALS: BP 146/86
[2018-02-18] MEDS ORDERED: ABACAVIR SULFATE 300 MG TABLET PO ONE (21:28)
[2018-02-18] MEDS: TRAZODONE 50 MG TABLET PO SCH (21:45)
[2018-02-18] MEDS: ABACAVIR SULFATE 300 MG TABLET PO SCH (21:45)
[2018-02-19 08:00] VITALS: BP 122/81
[2018-02-19 08:38] LABS: CALCIUM, SERUM 8.9 mg/dL (8.5-10.1); CREATININE 1.7 mg/dL (0.6-1.3); POTASSIUM 4.2 mmol/L (3.5-5.1)
[2018-02-19] MEDS: CHOLECALCIFEROL 1,000 UNIT TABLET (VIT D3) PO SCH (08:59)
[2018-02-19] MEDS: FLUOXETINE HCL 20 MG CAPSULE PO SCH (08:59)
[2018-02-19] MEDS: PANTOPRAZOLE 40 MG TABLET.DR PO SCH (09:00)
[2018-02-19] MEDS: LAMIVUDINE/ZIDOVUDINE 150-300 1 TAB TABLET PO SCH ×2 (09:00→17:06)
[2018-02-19] MEDS: CARVEDILOL 12.5 MG TABLET PO SCH ×2 (09:00→17:06)
--- NOTE | 2018-02-19 09:16 | NUR ---
UR Review: JULIAN faxed updated clinicals to [facility] fax# , attention Lucero on this date. JULIAN will follow up with Lucero later on in the day; regarding any updates with Board & Cares in the [place].
[2018-02-19 16:00] VITALS: BP 120/75
--- NOTE | 2018-02-19 16:52 | NUR ---
JULIAN called Lucero ext [phone] from [facility] regarding any updates with Board & Care search in the [place]. Per Lucero finding placement continues to be an issue as a result of pts past problematic behavior. JULIAN was asked to follow up on Thursday for any updates.
[2018-02-19 20:00] VITALS: BP 121/74
[2018-02-19] MEDS: ABACAVIR SULFATE 300 MG TABLET PO SCH (21:25)
[2018-02-19] MEDS: TRAZODONE 50 MG TABLET PO SCH (21:26)
[2018-02-19] MEDS: TEMAZEPAM 7.5 MG CAPSULE PO PRN (21:26)
[2018-02-20 08:00] VITALS: BP 142/81
[2018-02-20] MEDS: PANTOPRAZOLE 40 MG TABLET.DR PO SCH (08:58)
[2018-02-20] MEDS: CHOLECALCIFEROL 1,000 UNIT TABLET (VIT D3) PO SCH (08:58)
[2018-02-20] MEDS: LAMIVUDINE/ZIDOVUDINE 150-300 1 TAB TABLET PO SCH ×2 (08:59→17:23)
[2018-02-20] MEDS: CARVEDILOL 12.5 MG TABLET PO SCH ×2 (08:59→17:25)
[2018-02-20] MEDS: FLUOXETINE HCL 20 MG CAPSULE PO SCH (08:59)
[2018-02-20 15:56] VITALS: BP 139/76
[2018-02-20 20:00] VITALS: BP 132/74
[2018-02-20] MEDS: ABACAVIR SULFATE 300 MG TABLET PO SCH (21:40)
[2018-02-20] MEDS: TRAZODONE 50 MG TABLET PO SCH (21:40)
[2018-02-21] MEDS: TEMAZEPAM 7.5 MG CAPSULE PO PRN ×2 (00:04→23:09)
[2018-02-21] MEDS: PANTOPRAZOLE 40 MG TABLET.DR PO SCH (07:56)
[2018-02-21 08:00] VITALS: BP 137/79
[2018-02-21] MEDS: LAMIVUDINE/ZIDOVUDINE 150-300 1 TAB TABLET PO SCH ×2 (08:13→16:31)
[2018-02-21] MEDS: CARVEDILOL 12.5 MG TABLET PO SCH ×2 (08:14→16:28)
[2018-02-21] MEDS: CHOLECALCIFEROL 1,000 UNIT TABLET (VIT D3) PO SCH (08:14)
[2018-02-21] MEDS: FLUOXETINE HCL 20 MG CAPSULE PO SCH (08:14)
[2018-02-21 16:07] VITALS: BP 118/78
[2018-02-21] MEDS: LORAZEPAM 0.5 MG TABLET PO PRN (17:22)
[2018-02-21 19:57] VITALS: BP 147/93
[2018-02-21] MEDS: TRAZODONE 50 MG TABLET PO SCH (21:29)
[2018-02-21] MEDS: ABACAVIR SULFATE 300 MG TABLET PO SCH (21:29)
[2018-02-22 08:00] VITALS: BP 145/88
[2018-02-22] MEDS: CHOLECALCIFEROL 1,000 UNIT TABLET (VIT D3) PO SCH (08:13)
[2018-02-22] MEDS: CARVEDILOL 12.5 MG TABLET PO SCH ×2 (08:13→17:00)
[2018-02-22] MEDS: PANTOPRAZOLE 40 MG TABLET.DR PO SCH (08:13)
[2018-02-22] MEDS: FLUOXETINE HCL 20 MG CAPSULE PO SCH (08:13)
[2018-02-22] MEDS: LAMIVUDINE/ZIDOVUDINE 150-300 1 TAB TABLET PO SCH ×2 (08:14→17:17)
--- NOTE | 2018-02-22 11:12 | NUR ---
UR note: JULIAN faxed a clinical review to Lucero ([phone] ext [phone]) from [facility] at the fax #: [phone].
--- NOTE | 2018-02-22 11:12 | NUR ---
JULIAN called Davonte ([phone]) from [facility] and left an update for him about the pt as well as made a clarification on the discharge requests of the pt on his voicemail.
--- NOTE | 2018-02-22 14:31 | NUR ---
Davonte ([phone]) from [facility] called the SW back and the pt's discharge plan was discussed. The SW informed him about all the options that she tried and informed him of the pt's history. Davonte stated that he would talk to their placement person at [facility] and then call the SW back with updates.
[2018-02-22 16:05] VITALS: BP 134/75
--- NOTE | 2018-02-22 16:17 | NUR ---
SW called the pt's partner, Cipriano Ventura ([phone]), and it went straight to voicemail.
--- NOTE | 2018-02-22 16:18 | NUR ---
SW called the pt's brother, Cipriano Stephenson ([phone]), and discussed the pt not having access to his money and then he stated that he would contact the pt's partner since the pt and the SW are not able to contact him at the moment.
--- NOTE | 2018-02-22 16:20 | NUR ---
JULIAN called Davonte ([phone]) from [facility] and informed him on his voicemail that the pt does not currently have access to his money right now and that he is able to manage his own medications.
--- NOTE | 2018-02-22 19:30 | NUR ---
GPS RN NOTE, RECEIVED PATIENT AWAKE AND IN BED, NO S/S OR COMPLAINTS OF PAIN AT THIS TIME. PATIENT IS DISPLAYING NO S/S OF APPARENT DISTRESS AT THIS TIME. PATIENT BREATHING IS UNLABORED WITH EQUAL RISE AND FALL CHEST. PATIENT IS ALERT AND ORIENTED X 3 ON ROOM AIR WITH A SPO2 97%. PATIENT IS CALM, COOPERATIVE, ANXIOUS AT TIMES, AND NEEDS REDIRECTION. PATIENT DENIES SUICIDE IDEATIONS AND HOMICIDAL IDEATIONS AT THIS TIME. PATIENT EDUCATED ON THE USE OF THE CALL NAYAK. PATIENT BED SIDE RAILS UP X 2 FOR SAFETY, BED IS LOCKED AND LOW, WILL CONTINUE TO MONITOR AND MAINTAIN SAFETY WITH THE HELP OF STAFF.
[2018-02-22 19:41] VITALS: BP 158/89
[2018-02-22] MEDS: ABACAVIR SULFATE 300 MG TABLET PO SCH (22:20)
[2018-02-22] MEDS: TRAZODONE 50 MG TABLET PO SCH (22:20)
[2018-02-22] MEDS: TEMAZEPAM 7.5 MG CAPSULE PO PRN (23:11)
--- NOTE | 2018-02-22 23:11 | NUR ---
GPS RN NOTE, PATIENT HAS A COMPLAINT OF NOT BEING ABLE TO SLEEP AND IS REQUESTING RESTORIL 15MG PO HS PRN. PATIENT VITAL SIGNS ARE STABLE. GAVE RESTORIL 15MG PO HS PRN ORDERED. WILL REASSESS FOR INSOMNIA AND I WILL CONTINUE TO MONITOR THIS PATIENT.
[2018-02-23 07:32] LABS: CALCIUM, SERUM 8.3 mg/dL (8.5-10.1); CREATININE 1.6 mg/dL (0.6-1.3); POTASSIUM 3.9 mmol/L (3.5-5.1)
[2018-02-23 08:01] VITALS: BP 139/95
[2018-02-23] MEDS: CARVEDILOL 12.5 MG TABLET PO SCH ×2 (08:04→16:26)
[2018-02-23] MEDS: PANTOPRAZOLE 40 MG TABLET.DR PO SCH (08:04)
[2018-02-23] MEDS: FLUOXETINE HCL 20 MG CAPSULE PO SCH (08:04)
[2018-02-23] MEDS: CHOLECALCIFEROL 1,000 UNIT TABLET (VIT D3) PO SCH (08:04)
[2018-02-23] MEDS: LAMIVUDINE/ZIDOVUDINE 150-300 1 TAB TABLET PO SCH ×2 (08:06→16:26)
--- NOTE | 2018-02-23 09:34 | NUR ---
UR note: JULIAN faxed a clinical review to Lucero ([phone] ext [phone]) from [facility] at the fax #: [phone].
--- NOTE | 2018-02-23 09:35 | NUR ---
JULIAN spoke to Joy ([phone] ext. [phone]) from [facility] and informed her that the pt was Addendum: 02/23/18 at 0937 by PORTILLO JORDAN not discharged yet because he has been denying certain placement options and also has been denied himself for many of them due to his psychiatric condition as well as the reputation that he made for himself at these facilities. The SW informed Joy that [facility] took over and that the pt's case was taken to their placement person who is now trying to find placement.
--- NOTE | 2018-02-23 12:05 | NUR ---
JULIAN contacted Kerry ([phone]) and informed her about the pt. She stated that she would look for a board and care and then let the SW know if she finds placement.
--- NOTE | 2018-02-23 12:14 | NUR ---
Kerry ([phone]) called the SW and informed her that she has a board and care option but they will not accommodate for HIV. Pt informed Kerry that the pt would need a different placement and she stated that she would continue looking at let the SW know.
[2018-02-23 16:09] VITALS: BP 161/83
[2018-02-23] MEDS: LORAZEPAM 0.5 MG TABLET PO PRN (16:43)
--- NOTE | 2018-02-23 16:43 | NUR ---
[id number]: GAVE ATIVAN 1 MG PO DUE TO INCREASED ANXIETY UPON PT REQUEST AND WILL CONTINUE TO MONITOR FOR EFFECTIVENESS OF MEDICATION
[2018-02-23 19:37] VITALS: BP 162/90
[2018-02-23] MEDS: ABACAVIR SULFATE 300 MG TABLET PO SCH (21:09)
[2018-02-23] MEDS: TRAZODONE 50 MG TABLET PO SCH (22:06)
[2018-02-23 23:00] VITALS: BP 135/84
[2018-02-23] MEDS: TEMAZEPAM 7.5 MG CAPSULE PO PRN (23:57)
[2018-02-24 08:00] VITALS: BP 148/91
[2018-02-24] MEDS: PANTOPRAZOLE 40 MG TABLET.DR PO SCH (08:26)
[2018-02-24] MEDS: FLUOXETINE HCL 20 MG CAPSULE PO SCH (08:26)
[2018-02-24] MEDS: CHOLECALCIFEROL 1,000 UNIT TABLET (VIT D3) PO SCH (08:26)
[2018-02-24] MEDS: LAMIVUDINE/ZIDOVUDINE 150-300 1 TAB TABLET PO SCH ×2 (08:28→17:05)
[2018-02-24] MEDS: CARVEDILOL 12.5 MG TABLET PO SCH ×2 (09:50→17:00)
--- NOTE | 2018-02-24 11:08 | NUR ---
UR note: JULIAN faxed a clinical review to Lucero ([phone] ext [phone]) from [facility] at the fax number: .
[2018-02-24 16:00] VITALS: BP 146/84
--- NOTE | 2018-02-24 17:21 | NUR ---
NURSING NOTE COREG 12.5MG NOT ADMINISTERED, BP 152/92, HR 56. HOLD MED PER DR. HARPER FOR DECREASED HEART RATE, PER DR. HARPER HOLD FOR HEART RATE LESS THEN 60. WILL CONTINUE TO MONITOR.
[2018-02-24 19:57] VITALS: BP 144/92
[2018-02-24] MEDS: TRAZODONE 50 MG TABLET PO SCH (21:18)
[2018-02-24] MEDS: ABACAVIR SULFATE 300 MG TABLET PO SCH (21:18)
[2018-02-25] MEDS: TEMAZEPAM 7.5 MG CAPSULE PO PRN ×2 (00:15→21:46)
[2018-02-25] MEDS: FLUOXETINE HCL 20 MG CAPSULE PO SCH (08:14)
[2018-02-25] MEDS: PANTOPRAZOLE 40 MG TABLET.DR PO SCH (08:14)
[2018-02-25] MEDS: CHOLECALCIFEROL 1,000 UNIT TABLET (VIT D3) PO SCH (08:14)
[2018-02-25] MEDS: CARVEDILOL 12.5 MG TABLET PO SCH ×2 (08:15→16:34)
[2018-02-25] MEDS: LAMIVUDINE/ZIDOVUDINE 150-300 1 TAB TABLET PO SCH ×2 (08:16→16:34)
[2018-02-25 08:20] VITALS: BP 132/81
--- NOTE | 2018-02-25 11:07 | NUR ---
UR note: JULIAN faxed a clinical review to Lucero ([phone] ext [phone]) from [facility] at the fax number:
--- NOTE | 2018-02-25 11:09 | NUR ---
JULIAN called Davonte ([phone]) from [facility] and informed him on his voicemail that the SW is looking into sober living for the pt if it is becoming difficult to find a board and care.
--- NOTE | 2018-02-25 12:11 | NUR ---
Joy ([phone] ext. [phone]) from [facility] and discussed how the pt has been there for a long time and there has been minimal progress in terms of finding placement. SW informed her that the pt lost his [employer] card that has his money and so the SW is going to try to access the money. The SW also informed her that another option for placement right now is sober living. Joy ended the phone call by stating that the case may be set up for a peer to peer review.
--- NOTE | 2018-02-25 14:48 | NUR ---
JULIAN contacted Gregory ([phone]) from [facility] who is aware of Sober Livings in the area. He provided the SW with a contact acid plant operator helper for a sober living, Harrison Real ([phone]) from [facility].
--- NOTE | 2018-02-25 14:52 | NUR ---
SW called Harrison Real ([phone]) from [email or web address] and he stated that the pt would not be a good fit for his facility because they are catered towards the younger population and redirected the SW to his sister facility called [facility].
--- NOTE | 2018-02-25 14:58 | NUR ---
JULIAN spoke to Alpesh ([phone]) from [facility] and provided some of the pt's information to him so that he can decide whether or not to accept the pt. He stated that he wanted to speak to the pt on the phone so the SW provided the pt with his phone number and is now awaiting a response.
[2018-02-25 16:00] VITALS: BP 152/94
[2018-02-25 20:00] VITALS: BP 141/86
[2018-02-25] MEDS: TRAZODONE 50 MG TABLET PO SCH (21:45)
[2018-02-25] MEDS: ABACAVIR SULFATE 300 MG TABLET PO SCH (21:45)
[2018-02-26] MEDS: LORAZEPAM 0.5 MG TABLET PO PRN (00:52)
[2018-02-26 08:00] VITALS: BP 129/83
--- NOTE | 2018-02-26 08:36 | NUR ---
UR note: JULIAN bertrandxed a clinical review to Lucero ([phone] ext [phone]) from [facility] at the fax number: [phone] Addendum: 03/01/18 at 0909 by PORTILLO JORDAN [phone]
--- NOTE | 2018-02-26 08:36 | NUR ---
SW spoke to the pt about the Sober Livings that she provided the pt information about and asked him to call. He stated that they all want someone who is in a better condition than himself. Pt stated that these sober livings want someone who will contribute to the house chores which he is unable to do. Pt stated that he would be willing to go outside of the [place] area for a board and care.
--- NOTE | 2018-02-26 08:38 | NUR ---
Pt provided the pt with the bank routing number and the direct deposit ID number so that he can access his money that goes into his WAGNER card.
[2018-02-26] MEDS: PANTOPRAZOLE 40 MG TABLET.DR PO SCH (08:57)
[2018-02-26] MEDS: CHOLECALCIFEROL 1,000 UNIT TABLET (VIT D3) PO SCH (08:57)
[2018-02-26] MEDS: CARVEDILOL 12.5 MG TABLET PO SCH ×2 (08:57→16:13)
[2018-02-26] MEDS: LAMIVUDINE/ZIDOVUDINE 150-300 1 TAB TABLET PO SCH ×2 (08:58→16:13)
[2018-02-26] MEDS: FLUOXETINE HCL 20 MG CAPSULE PO SCH (08:58)
--- NOTE | 2018-02-26 12:10 | NUR ---
JULIAN spoke to Joy ([phone] ext. [phone]) from [facility] and informed her that the pt cannot be placed at a sober living because he is unable to partake in chores and then informed her that the pt accepted the board and care in [place] but there are no rooms available. Joy said that she would contact Davonte and have him call the SW back.
--- NOTE | 2018-02-26 13:10 | NUR ---
JULIAN called the [employer] customer service and discussed how the pt can access his money without the WAGNER card. JULIAN was informed that there is no option and that the pt would have to get a new card if it is lost.
--- NOTE | 2018-02-26 13:11 | NUR ---
JULIAN called [employer] ([phone]) with the pt next to her so that he could provide some necessary information. The card was cancelled and all of the transactions that the pt had made on his card since his admission to the hospital are being reimbursed. The chose to have his new card sent to his brother's house located at [address] [place] [address], [facility] [address], [place] [address].
--- NOTE | 2018-02-26 13:13 | NUR ---
SW called the pt's brother, Cipriano Stephenson ([phone]), and informed him that the pt send the new WAGNER Card to his home's location. The pt's brother accepted that and stated that when the card arrives he will contact the pt to give it to him. The SW asked him if he could his brother with temporary placement until the card arrives and he denied that option.
[2018-02-26 16:00] VITALS: BP 132/78
[2018-02-26 20:00] VITALS: BP 139/82
[2018-02-26] MEDS: TRAZODONE 50 MG TABLET PO SCH (21:26)
[2018-02-26] MEDS: ABACAVIR SULFATE 300 MG TABLET PO SCH (21:26)
[2018-02-26] MEDS: TEMAZEPAM 7.5 MG CAPSULE PO PRN (21:27)
[2018-02-27] MEDS: LORAZEPAM 0.5 MG TABLET PO PRN (00:05)
[2018-02-27 08:00] VITALS: BP 133/88
[2018-02-27] MEDS: CARVEDILOL 12.5 MG TABLET PO SCH ×2 (08:46→17:22)
[2018-02-27] MEDS: PANTOPRAZOLE 40 MG TABLET.DR PO SCH (08:47)
[2018-02-27] MEDS: CHOLECALCIFEROL 1,000 UNIT TABLET (VIT D3) PO SCH (08:47)
[2018-02-27] MEDS: LAMIVUDINE/ZIDOVUDINE 150-300 1 TAB TABLET PO SCH ×2 (08:47→17:23)
[2018-02-27] MEDS: FLUOXETINE HCL 20 MG CAPSULE PO SCH (08:47)
[2018-02-27 16:00] VITALS: BP 128/80
--- NOTE | 2018-02-27 20:20 | NUR ---
RN NOTES RECEIVED PT. FROM GPS, WITH MARGOTH MORAN, REFUSED BODY CHECK, PT. HAS ILEOSTOMY AND HE'S THE ONE CLEANING IT, DENIES PAIN, NO, SOB, WILL CONTINUE TO MONITOR
[2018-02-27] MEDS ORDERED: ABACAVIR SULFATE 300 MG TABLET PO ONE (21:45)
[2018-02-27] MEDS: TRAZODONE 50 MG TABLET PO SCH (21:52)
[2018-02-27] MEDS: ABACAVIR SULFATE 300 MG TABLET PO SCH (21:52)
[2018-02-27] MEDS: TEMAZEPAM 7.5 MG CAPSULE PO PRN (21:54)
--- NOTE | 2018-02-27 21:56 | NUR ---
RN NOTES PT ASKED FOR SLEEPING PILL- RESTORIL 15MG PO GIVEN ORDERED, V/S STABLE
--- NOTE | 2018-02-28 06:48 | NUR ---
RN NOTES SLEEPING BUT AROUSABLE, SITTER AT BEDSIDE, CALM AND COOPERATIVE, MORNING CARE RENDERED, PT. NEEDS ATTENDED
[2018-02-28 08:00] VITALS: BP 145/85
[2018-02-28 08:20] VITALS: BP 145/85
[2018-02-28] MEDS: PANTOPRAZOLE 40 MG TABLET.DR PO SCH (08:25)
[2018-02-28] MEDS: CHOLECALCIFEROL 1,000 UNIT TABLET (VIT D3) PO SCH (08:25)
[2018-02-28] MEDS: FLUOXETINE HCL 20 MG CAPSULE PO SCH (08:25)
[2018-02-28] MEDS: CARVEDILOL 12.5 MG TABLET PO SCH ×2 (08:25→18:03)
[2018-02-28] MEDS: LAMIVUDINE/ZIDOVUDINE 150-300 1 TAB TABLET PO SCH ×2 (08:25→18:03)
--- NOTE | 2018-02-28 09:13 | NUR ---
GPS/RN RECEIVED PT FROM 2W /GPS OVERFLOW. NO ACUTE DISTRESS. VSS ALL NEED ATTENDED AND ANTICIPATED.
[2018-02-28 16:00] VITALS: BP 141/87
[2018-02-28] MEDS: LORAZEPAM 0.5 MG TABLET PO PRN (19:56)
--- NOTE | 2018-02-28 19:56 | NUR ---
GPS RN NOTE, PATIENT HAS A COMPLAINT OF FEELING ANXIOUS AND IS REQUESTING ATIVAN AT THIS TIME. PATIENT VITAL SIGNS ARE STABLE. GAVE ATIVAN 1MG PO Q4HR PRN ORDERED. WILL REASSESS FOR ANXIETY AND I WILL CONTINUE TO MONITOR THIS PATIENT.
[2018-02-28 20:55] VITALS: BP 154/81
[2018-02-28] MEDS: TRAZODONE 50 MG TABLET PO SCH (21:44)
[2018-02-28] MEDS: ABACAVIR SULFATE 300 MG TABLET PO SCH (21:44)
--- NOTE | 2018-02-28 22:37 | NUR ---
GPS RN NOTE, PATIENT HAS A RIGHT UPPER QUADRANT ILEOSTOMY THAT IS BEEFY RED, PUTTING OUT SMALL AMOUNT OF BROWN LIQUIDITY STOOL. PATIENT REFUSED TO HAVE PICTURE TAKEN AT THIS TIME. PATIENT STATES THAT, " I DON'T WANT TO TAKE MY ILEOSTOMY POUCH OFF TO TAKE A PICTURE, I JUST CHANGED IT". WILL CONTINUE TO MONITOR THIS PATIENT.
[2018-02-28] MEDS: TEMAZEPAM 7.5 MG CAPSULE PO PRN (23:47)
--- NOTE | 2018-02-28 23:50 | NUR ---
GPS OV RN NOTES RECEIVED TRANSFER FROM GPS MAIN VIA WHEELCHAIR,A/O X4,AMBULATORY,VOLUNTARY STATUS.MED COMPLIANT.REFUSED PICTURE ON ILEOSTOMY SITE.SITTER AT BEDSIDE.WILL CONTINUE TO MONITOR BEHAVIOR.
--- NOTE | 2018-02-28 23:57 | NUR ---
GPS OV RN NOTES C/O INSOMNIA,RESTORIL 15 MG PO GIVEN ORDERED.WILL MONITOR HOURS OF SLEEP.
--- NOTE | 2018-03-01 07:21 | NUR ---
MS RN NOTES SLEPT 5 HOURS LAST NIGHT,DENIES SI,NEEDS ATTENDED.
--- NOTE | 2018-03-01 08:00 | NUR ---
GPS ROAD OILER: INITIAL NOTES RECEIVED PT IN BED AWAKE, A/OX4. NO C/O PAIN OR ANY DISCOMFORT. SELF CARE. PT REMAINS PASSIVE, ISOLATIVE, AND DEPRESSED, BUT DENIES SI/HI AT THIS TIME. SITTER AT BEDSIDE. WILL CONTINUE TO MONITOR.
[2018-03-01] MEDS: CHOLECALCIFEROL 1,000 UNIT TABLET (VIT D3) PO SCH (08:24)
[2018-03-01] MEDS: FLUOXETINE HCL 20 MG CAPSULE PO SCH (08:24)
[2018-03-01] MEDS: PANTOPRAZOLE 40 MG TABLET.DR PO SCH (08:24)
[2018-03-01] MEDS: CARVEDILOL 12.5 MG TABLET PO SCH ×2 (08:32→16:46)
--- NOTE | 2018-03-01 09:09 | NUR ---
UR note: JULIAN faxed a clinical review to Lucero ([phone] ext [phone]) from [facility] at the fax number: .
[2018-03-01] MEDS: LAMIVUDINE/ZIDOVUDINE 150-300 1 TAB TABLET PO SCH ×2 (09:39→16:44)
--- NOTE | 2018-03-01 11:43 | NUR ---
JULIAN contacted Gia ([phone]) for help with Board and Cares and she found one but stated that the pt would have to pay the first month's rent before admitting.
--- NOTE | 2018-03-01 11:44 | NUR ---
JULIAN called Davonte ([phone]) from [facility] and left a voicemail stating that the pt had a new WAGNER card ordered for him which will be delivered to his brother's house sometime this week. The SW also informed him that there is a board and care that is willing to take him if he is able to provide one months rent up front.
--- NOTE | 2018-03-01 11:45 | NUR ---
JULIAN called Joy ([phone] ext. [phone]) from [facility] and provided her with an update regarding the pt on her confidential voicemail.
--- NOTE | 2018-03-01 12:30 | NUR ---
JULIAN sent a referral to [facility] for the pt with attention to Patt and to the fax number: but the pt was denied.
--- NOTE | 2018-03-01 14:00 | NUR ---
gps costume seamstress: notes pt remains isolative despite encouraging pt to go to day room activity, but pt refuses. sitter remains at bedside. will continue to monitor.
--- NOTE | 2018-03-01 15:00 | NUR ---
gps assistant guest services manager: notes ileostomy care done by pt privately. remains passive and isolative, but denies si/hi at this time.
[2018-03-01 16:00] VITALS: BP 138/83
--- NOTE | 2018-03-01 16:49 | NUR ---
gps refrigerator car icer: psych f/u seen by dr. darnell and informed pt for d'c planning this week, pt verbalized understanding.
[2018-03-01 20:00] VITALS: BP 136/90
--- NOTE | 2018-03-01 20:00 | NUR ---
GPS OVERFLOW RN NOTE: PATIENT RESTING IN BED, NO ACUTE DISTRESS NOTED. BREATHING EVEN AND UNLABORED, NO SOB NOTED. SITTER AT BEDSIDE. PATIENT CALM AND COOPERATIVE AT THIS TIME. BED LOCKED AND IN LOWEST POSITION, CALL LIGHT IN REACH. WILL CONTINUE TO MONITOR.
[2018-03-01] MEDS: TRAZODONE 50 MG TABLET PO SCH (21:37)
[2018-03-01] MEDS: ABACAVIR SULFATE 300 MG TABLET PO SCH (21:38)
[2018-03-02] MEDS: TEMAZEPAM 7.5 MG CAPSULE PO PRN ×2 (01:44→23:55)
--- NOTE | 2018-03-02 01:45 | NUR ---
GPS OVERFLOW RN NOTE: PATIENT REQUESTING FOR SLEEPING MEDICATIONS. RESTORIL 15MG ORAL GIVEN PER MD ORDER. WILL CONTINUE TO MONITOR.
--- NOTE | 2018-03-02 06:30 | NUR ---
GPS OVERFLOW RN NOTE: PATIENT RESTING IN BED, NO ACUTE DISTRESS NOTED. BREATHING EVEN AND UNLABORED, NO SOB NOTED. SITTER AT BEDSIDE. PATIENT CALM AND COOPERATIVE AT THIS TIME. PATIENT SLEPT AT LEAST 8 HOURS. BED LOCKED AND IN LOWEST POSITION, CALL LIGHT IN REACH. WILL ENDORSE TO DAY NURSE TO CONTINUE WITH PLAN OF CARE.
[2018-03-02 08:00] VITALS: BP_SYST 144; BP_DIAS 58; BP_DIAS 91
[2018-03-02] MEDS: CHOLECALCIFEROL 1,000 UNIT TABLET (VIT D3) PO SCH (08:19)
[2018-03-02] MEDS: PANTOPRAZOLE 40 MG TABLET.DR PO SCH (08:19)
[2018-03-02] MEDS: FLUOXETINE HCL 20 MG CAPSULE PO SCH (08:19)
[2018-03-02] MEDS: LAMIVUDINE/ZIDOVUDINE 150-300 1 TAB TABLET PO SCH ×2 (08:19→17:01)
[2018-03-02] MEDS: CARVEDILOL 12.5 MG TABLET PO SCH ×2 (08:21→17:00)
--- NOTE | 2018-03-02 09:00 | NUR ---
MS/RN Medications Compliant with medications.
--- NOTE | 2018-03-02 10:10 | NUR ---
JULIAN called Joy ([phone] ext. [phone]) from [facility] and provided her with an update stating that the pt was assessed by a woman named Gia ([phone]) who has connections to Board and Cares as well as Independent Livings. JULAIN informed Joy that Gia has an independent living that would be a good fit for the pt but she has to speak to the global process owner first. JULIAN stated that she would provide her with an update when she has one.
--- NOTE | 2018-03-02 10:10 | NUR ---
UR note: JULIAN faxed a clinical review to Lucero ([phone] ext [phone]) from [facility] at the fax number: .
--- NOTE | 2018-03-02 10:16 | NUR ---
Gia ([phone]) came to the assess the pt and stated that she has an independent living in [place] that would be a good fit for the pt. She stated that she will talk to the enrollment counselor and then have the enrollment counselor come visit the pt as well.
--- NOTE | 2018-03-02 11:36 | NUR ---
Gia ([phone]) came back with the bistro server of [facility], Chilango ([phone]), and met with the pt and the SW. Chilango decided that the pt is a good fit for his independent living and will be discharged to him tomorrow with a clearance from the psychiatrist.
--- NOTE | 2018-03-02 11:39 | NUR ---
JULIAN called the pt's brother, Cipriano Stephenson ([phone]), and left a voicemail stating that the pt is going to be discharged to an independent living tomorrow and provided him with the address so that he can take the [facility] card there when it arrives.
--- NOTE | 2018-03-02 11:42 | NUR ---
JULIAN called Joy ([phone] ext. [phone]) from [facility] and informed her that the pt is going to be discharged to [facility] located at [address] [place] [address] tomorrow morning.
--- NOTE | 2018-03-02 11:45 | NUR ---
MS/band tier plan Patient for discharge tomorrow to independent living facility.
[2018-03-02] MEDS: LORAZEPAM 0.5 MG TABLET PO PRN (13:55)
[2018-03-02 16:00] VITALS: BP 112/70
--- NOTE | 2018-03-02 19:40 | NUR ---
MS/RN End note No needs at this time, will endorse to senior accounting clerk.
--- NOTE | 2018-03-02 19:41 | NUR ---
RN Notes Received pt awake, alert and oriented x3, denies any pain and discomfort at this time. Pt calm, quiet and cooperative. Remains isolative, passive, and quiet. Sitter remains at bedside for safety. Will continue to monitor.
[2018-03-02 20:00] VITALS: BP 130/80
[2018-03-02] MEDS: TRAZODONE 50 MG TABLET PO SCH (21:30)
[2018-03-02] MEDS: ABACAVIR SULFATE 300 MG TABLET PO SCH (21:30)
--- NOTE | 2018-03-03 07:43 | NUR ---
RN NOTES PT CALM, QUIET AND COOPERATIVE IN CARE. DENIES SUICIDAL IDEATION . SAFETY MEASURES OBSERVED. FOR D/C TODAY TO [facility] TR[facility] SERVICE [facility].
--- NOTE | 2018-03-03 07:53 | NUR ---
RN NOTES PATIENT AWAKE AND ALERT ORIENTED X3, BREATHING EVEN AND UNLABORED, DENIES PAIN OR DISCOMFORT AT THIS TIME. SITTER AT BEDSIDE, NEEDS ATTENDED, KEPT COMFORTABLE, WILL CONTINUE TO MONITOR.
[2018-03-03 08:22] VITALS: BP 165/90
--- NOTE | 2018-03-03 08:34 | NUR ---
JULIAN called Joy ([phone] ext. [phone]) from [facility] and left her a message on her voicemail that the SW received her voicemail from yesterday and that the only missing component was the date of the pt's medication management appointment.
[2018-03-03] MEDS: FLUOXETINE HCL 20 MG CAPSULE PO SCH (08:56)
[2018-03-03 08:57] VITALS: BP 165/90
[2018-03-03] MEDS: PANTOPRAZOLE 40 MG TABLET.DR PO SCH (08:57)
[2018-03-03] MEDS: CHOLECALCIFEROL 1,000 UNIT TABLET (VIT D3) PO SCH (08:57)
[2018-03-03] MEDS: CARVEDILOL 12.5 MG TABLET PO SCH (08:57)
[2018-03-03] MEDS: LAMIVUDINE/ZIDOVUDINE 150-300 1 TAB TABLET PO SCH (08:57)
--- NOTE | 2018-03-03 10:14 | NUR ---
JULIAN called Chilango ([phone]), [facility], and informed him that she has the requested paperwork ready for when he arrives to medicinal plant picker the pt.
--- NOTE | 2018-03-03 13:08 | NUR ---
DISCHARGE PATIENT A/OX3, NO DISTRESS NOTED, DENIES SI/HI, PATIENT RECEIVED DISCHARGE INSTRUCTIONS AND VERBALIZED UNDERSTANDING, PAPERWORKS SIGNED. SKIN ASSESSMENT COMPLETED, SKIN DRY AND INTACT. PATIENT HAS NO IV ACCESS. BELONGINGS RECONCILED AND COMPLETE. PATIENT PICKED UP BY ANDRE, STAFF FROM [facility], PATIENT LEFT THE FACILITY IN NO DISTRESS.
--- NOTE | 2018-03-03 13:36 | NUR ---
Discharge Note: Pt was discharged to [facility] located at [address] [place] [address]; ([phone]). Pt was picked up by Chilango ([phone]) around 1PM. Pts brother, Cipriano Stephenson ([phone]), was notified of the discharge and he approved it. Pts brother will be going to this location to drop off the pts [facility] card when it comes in the mail so that the pt can make his payments. Upon discharge, the pt appeared to be in a euthymic mood and stated that he was excited to be out of the hospital. Pt denied both suicidal and homicidal ideation as well as auditory and visual hallucinations. Pt was provided with homeless referrals, food bank referrals and substance abuse referrals upon discharge that are listed below. Pt has medication management appointments with Dr. Dexter Sanon, located at [address] [facility], [address], [place] [address]; ([phone]) and therapy appointments with Dr. Nadine Smith, located at [address] [place] [address]; ([phone]). Pt was also referred to psychiatrist, Dr. Yugn Gilmore, located at [address] [place] [address]; and systems integration manager, Dr. Reji Dumont, located at [address] [facility] [address], [place] [address]; . Referrals: Homeless Nursing Home Referrals [facility] and [facility] [address] [place], [place] [id number] [facility] [address] [place] [address] [employer] [facility] [address] [place], [place] [id number] [facility] [address] [place], [place] [address] Substance Use Referrals [facility] [address] [place] [address] [facility] [address] [place] Provider Mental Health Treatment Tele-dermatology HIV Services Telemedicine Services [facility] [address] [place] [address] [facility] [address] [place] [address]
--- NOTE | 2018-03-03 14:01 | NUR ---
UR note: JULIAN faxed the discharge clinical to Lucero ([phone]) from [facility] at the fax number: .
== END 2018-03-03 13:08 | DRG 885 ==
LOC: ER 08:01 → GPSOV2 13:17 → GPS 02-17 18:34 → GPSOV2 02-27 20:05 → GPS 02-28 10:16 → GPSOV2 02-28 23:41
PROVIDERS: ADMIT Psychiatry & Neurology Psychiatry; ATTEND Family Medicine
DX: F33.9 Major depressive disorder, recurrent, unspecified (principal); N18.9 Chronic kidney disease, unspecified; N17.0 Acute kidney failure with tubular necrosis; Z93.2 Ileostomy status; K51.90 Ulcerative colitis, unspecified, without complications; R45.851 Suicidal ideations; I12.9 Hypertensive chronic kidney disease with stage 1 through stage 4 chronic kidney disease, or unspecified chronic kidney disease; D63.8 Anemia in other chronic diseases classified elsewhere; E55.9 Vitamin D deficiency, unspecified; E78.5 Hyperlipidemia, unspecified; Z59.0 Homelessness; E83.42 Hypomagnesemia; Z91.5 Personal history of self-harm; F19.90 Other psychoactive substance use, unspecified, uncomplicated; Z79.899 Other long term (current) drug therapy
CPT/HCPCS: 36415; 80048-TC; 80053-TC; 80061-TC; 80076-TC; 80305; 81000-TC; 82306; 82652; 83735-TC; 83970; 84100-TC; 85025-TC; 86360; 87081-TC; 87536; A4606; G0480; J7030; Z7610